=== PATIENT | female | born 1950 | race African-American/Black ===

== ENCOUNTER 2017-09-27 09:04 | Inpatient (IN) ==
[2017-09-27] MEDS ORDERED: FUROSEMIDE 100 MG/10 ML VIAL IV STA (10:06)
[2017-09-27] MEDS ORDERED: cefTRIAXone 1,000 MG in SODIUM CHLORIDE 0.9% 100 ML IV STA (10:06)
[2017-09-27] MEDS ORDERED: ONDANSETRON 4 MG/2 ML VIAL IV STA (10:06)
[2017-09-27] MEDS ORDERED: methylPREDNISolone SOD SUC 125 MG/2 ML VIAL IV STA (10:06)
[2017-09-27] MEDS ORDERED: ALBUTEROL 2.5 MG/3 ML NEB RESP TX SCH (10:30)
[2017-09-27 11:00] LABS: ABG Base Excess 8.2 MMOL/L (-2.5-2.5); ABG HCO3 31.6 MMOL/L (20-26); ABG Oxygen Saturation 75.5 % (95-100); ABG PCO2 51.4 MM HG (35-48); ABG PH 7.428 (7.35-7.45); ABG PO2 44.1 MM HG (80-95); ABG TCO2 30.9 MMOL/L (23-27)
[2017-09-27 11:10] LABS: Basophils % 0.4 % (0.0-0.8); Eosinophils % 0.4 % (0.00-10.9); Hematocrit 33.1 VOL% (35.7-47.0); Hemoglobin 10.5 GM/DL (12.0-16.0); Immature Granulocytes % 0.4 %; Immature Granulocytes Absolute 0.02 #; Lymphocytes # 0.9 10*3/uL (1.4-4.0); Lymphocytes % 15.8 % (21.3-54.2); Mean Corpuscular HGB Conc 31.7 GM/DL (32-36); Mean Corpuscular Hemoglobin 29 PG (27-34); Mean Corpuscular Volume 92.2 FL (87-102); Mean Platelet Volume 11.4 FL (9.6-12.0); Monocytes # 0.6 10*3/uL (0.11-0.8); Monocytes % 10.2 % (1.7-12.7); Neutrophils % 72.8 % (38.7-73.9); Platelet Count 214 T/CUMM (130-400); Red Blood Count 3.59 MC/CUMM (3.8-5.5); Red Cell Distribution Width 17.6 % (9.3-17.3); White Blood Count 5.5 T/CUMM (4-12)
[2017-09-27 11:32] LABS: INR 1.1; PT Patient Result 11.6 SECS
[2017-09-27 11:47] LABS: Apearance,Urine CLEAR (Clear); Bacteria,Urine Occasional /HPF (Few); Bilirubin,Urine Negative (Negative); Blood, Urine Small mg/dL (Negative); Glucose,Urine (UA) Negative (Negative); Ketones,Urine Negative (Negative); Mucus,Urine Occasional /LPF (Occasional); Nitrite,Urine Negative (Negative); Protein,Urine 100 MG/DL; RBC,Urine 1 /HPF (0-4); Squamous Epithelial Cell,Urine Occasional /HPF (0-10); Urine Color Yellow (Yellow); Urine Specific Gravity 1.008 (1.001-1.035); Urine Urobilinogen < 2.0 EU/DL (0.2-1.0); WBC,Urine 2 /HPF (0-6)
[2017-09-27 11:50] LABS: Lactic Acid 0.7 MMOL/L (0.4-2.0)
[2017-09-27 11:52] LABS: Alanine Aminotransferase 18 U/L (13-56); Albumin 2.6 G/DL (3.4-5.0); Alkaline Phosphatase 323 U/L (45-117); Aspartate Amino Transferase 33 U/L (0-37); Blood Urea Nitrogen 21 MG/DL (7-18); Calcium 8.4 MG/DL (8.5-10.1); Glucose 93 MG/DL (74-106); Osmolality,Calculated 279.5 MOS/KG (273-304); Potassium 2.9 MMOL/L (3.5-5.1); Sodium 139 MMOL/L (136-145); Total Protein 7.8 G/DL (6.4-8.3)
[2017-09-27 11:53] LABS: Troponin I Only 0.063 NG/ML (0.00-0.045)
[2017-09-27 11:55] LABS: Barbiturates Screen,Urine Negative (Negative); Benzodiazepines Screen,Urine Negative (Negative); Cannabinoid Screen,Urine Negative (Negative); Opiate Screen,Urine Negative (Negative); Phencyclidine Screen,Urine Negative (Negative)
[2017-09-27] MEDS ORDERED: POTASSIUM CHLORIDE 20 MEQ TABLET PO STA (11:55)
[2017-09-27 11:59] LABS: Ammonia 27 UMOL/L (11-32)
[2017-09-27] MEDS ORDERED: ONDANSETRON 4 MG/2 ML VIAL IV PRN (13:28)
[2017-09-27] MEDS ORDERED: ACETAMINOPHEN 325 MG TABLET PO PRN (13:28)
[2017-09-27] MEDS ORDERED: EPOETIN ALFA 2,000 UNIT/1 ML VIAL IV PRN (15:10)
[2017-09-27] MEDS ORDERED: HEPARIN 10,000 UNIT/10 ML VIAL IV PRN (18:19)
[2017-09-28 05:01] LABS: Hematocrit 33.8 VOL% (35.7-47.0); Hemoglobin 10.2 GM/DL (12.0-16.0); Immature Granulocytes % 0.5 %; Immature Granulocytes Absolute 0.03 #; Lymphocytes # 0.6 10*3/uL (1.4-4.0); Lymphocytes % 10.7 % (21.3-54.2); Mean Corpuscular HGB Conc 30.2 GM/DL (32-36); Mean Corpuscular Hemoglobin 29 PG (27-34); Mean Corpuscular Volume 94.9 FL (87-102); Mean Platelet Volume 11.2 FL (9.6-12.0); Monocytes # 0.6 10*3/uL (0.11-0.8); Monocytes % 10.2 % (1.7-12.7); Neutrophils # 4.5 10*3/uL (1.4-7.4); Neutrophils % 78.6 % (38.7-73.9); Platelet Count 222 T/CUMM (130-400); Red Blood Count 3.56 MC/CUMM (3.8-5.5); Red Cell Distribution Width 17.7 % (9.3-17.3); White Blood Count 5.8 T/CUMM (4-12)
[2017-09-28 05:31] LABS: Albumin 2.5 G/DL (3.4-5.0); Bilirubin,Total 0.6 MG/DL (0.2-1.0); Calcium 8.1 MG/DL (8.5-10.1); Osmolality,Calculated 285.3 MOS/KG (273-304); Potassium 3.9 MMOL/L (3.5-5.1); Total Protein 7.4 G/DL (6.4-8.3)
[2017-09-28] MEDS ORDERED: HEPARIN 10,000 UNIT/10 ML VIAL IV SCH (07:00)
[2017-09-28] MEDS ORDERED: hydrALAZINE 20 MG/1 ML VIAL IV PRN (08:13)
[2017-09-28] MEDS: PANTOPRAZOLE 40 MG TABLET PO SCH (09:08)
[2017-09-28] MEDS: CARVEDILOL 6.25 MG TABLET PO SCH (19:17)
[2017-09-29] MEDS: CARVEDILOL 6.25 MG TABLET PO SCH ×2 (08:52→17:00)
[2017-09-29] MEDS: PANTOPRAZOLE 40 MG TABLET PO SCH (09:13)
[2017-09-29] MEDS: ANASTROZOLE 1 MG TABLET PO SCH (09:13)
[2017-09-29] MEDS: amLODIPine 5 MG TABLET PO SCH (09:13)
[2017-09-29] MEDS: CINACALCET 30 MG TABLET PO SCH (09:16)
[2017-09-29] MEDS ORDERED: LOSARTAN 50 MG TABLET PO SCH (12:00)
[2017-09-29] MEDS ORDERED: ONDANSETRON 4 MG/2 ML VIAL IV ONE (13:00)
[2017-09-30 07:05] LABS: Basophils % 0.4 % (0.0-0.8); Eosinophils # 0.1 10*3/uL (0.0-0.87); Eosinophils % 1.7 % (0.00-10.9); Hematocrit 36.2 VOL% (35.7-47.0); Hemoglobin 10.9 GM/DL (12.0-16.0); Immature Granulocytes Absolute 0.07 #; Lymphocytes # 1.7 10*3/uL (1.4-4.0); Mean Corpuscular HGB Conc 30.1 GM/DL (32-36); Mean Corpuscular Hemoglobin 29 PG (27-34); Mean Corpuscular Volume 95.8 FL (87-102); Mean Platelet Volume 11.2 FL (9.6-12.0); Monocytes # 0.7 10*3/uL (0.11-0.8); Monocytes % 9.6 % (1.7-12.7); NRBC # 0.03 10*3/uL; Neutrophils # 4.3 10*3/uL (1.4-7.4); Neutrophils % 62.3 % (38.7-73.9); Platelet Count 198 T/CUMM (130-400); Red Blood Count 3.78 MC/CUMM (3.8-5.5); Red Cell Distribution Width 18.2 % (9.3-17.3); White Blood Count 6.9 T/CUMM (4-12)
[2017-09-30 07:33] LABS: Calcium 8.1 MG/DL (8.5-10.1); Osmolality,Calculated 284.5 MOS/KG (273-304); Potassium 4.4 MMOL/L (3.5-5.1)
[2017-09-30] MEDS: CINACALCET 30 MG TABLET PO SCH (10:06)
[2017-09-30] MEDS: ANASTROZOLE 1 MG TABLET PO SCH (10:06)
[2017-09-30] MEDS: CARVEDILOL 6.25 MG TABLET PO SCH ×2 (10:06→16:37)
[2017-09-30] MEDS: VALSARTAN 160 MG TABLET PO SCH (10:06)
[2017-09-30] MEDS: amLODIPine 5 MG TABLET PO SCH (10:06)
[2017-09-30] MEDS: PANTOPRAZOLE 40 MG TABLET PO SCH (10:06)
[2017-10-01 06:24] LABS: Basophils % 0.5 % (0.0-0.8); Eosinophils # 0.2 10*3/uL (0.0-0.87); Eosinophils % 2.3 % (0.00-10.9); Hematocrit 34.6 VOL% (35.7-47.0); Hemoglobin 10.6 GM/DL (12.0-16.0); Immature Granulocytes % 1.3 %; Immature Granulocytes Absolute 0.08 #; Lymphocytes # 1.3 10*3/uL (1.4-4.0); Lymphocytes % 20.6 % (21.3-54.2); Mean Corpuscular HGB Conc 30.6 GM/DL (32-36); Mean Corpuscular Hemoglobin 29 PG (27-34); Mean Corpuscular Volume 94.8 FL (87-102); Mean Platelet Volume 11.1 FL (9.6-12.0); Monocytes # 0.7 10*3/uL (0.11-0.8); Monocytes % 10.2 % (1.7-12.7); NRBC # 0.04 10*3/uL; Neutrophils # 4.2 10*3/uL (1.4-7.4); Neutrophils % 65.1 % (38.7-73.9); Platelet Count 182 T/CUMM (130-400); Red Blood Count 3.65 MC/CUMM (3.8-5.5); Red Cell Distribution Width 18.5 % (9.3-17.3); White Blood Count 6.4 T/CUMM (4-12)
[2017-10-01 06:42] LABS: Calcium 7.7 MG/DL (8.5-10.1); Osmolality,Calculated 283.4 MOS/KG (273-304); Potassium 5.1 MMOL/L (3.5-5.1)
[2017-10-01] MEDS: ANASTROZOLE 1 MG TABLET PO SCH (10:36)
[2017-10-01] MEDS: PANTOPRAZOLE 40 MG TABLET PO SCH (10:36)
[2017-10-01] MEDS: VALSARTAN 160 MG TABLET PO SCH (10:36)
[2017-10-01] MEDS: amLODIPine 5 MG TABLET PO SCH (10:37)
[2017-10-01] MEDS: CARVEDILOL 6.25 MG TABLET PO SCH (10:37)
[2017-10-01] MEDS: CINACALCET 30 MG TABLET PO SCH (10:37)
[2017-10-01] MEDS: ISOSORBIDE MONONITRATE 30 MG TABLET PO SCH (16:36)
[2017-10-01] MEDS: hydrALAZINE 25 MG TABLET PO SCH ×2 (16:36→22:38)
[2017-10-01] MEDS: CARVEDILOL 12.5 MG TABLET PO SCH (16:41)
[2017-10-02] MEDS: ISOSORBIDE MONONITRATE 30 MG TABLET PO SCH (09:58)
[2017-10-02] MEDS: CINACALCET 30 MG TABLET PO SCH (09:58)
[2017-10-02] MEDS: CARVEDILOL 12.5 MG TABLET PO SCH ×2 (09:58→16:42)
[2017-10-02] MEDS: PANTOPRAZOLE 40 MG TABLET PO SCH (09:58)
[2017-10-02] MEDS: VALSARTAN 160 MG TABLET PO SCH (09:59)
[2017-10-02] MEDS: hydrALAZINE 25 MG TABLET PO SCH ×3 (09:59→21:11)
[2017-10-02] MEDS: ANASTROZOLE 1 MG TABLET PO SCH (09:59)
[2017-10-03] MEDS: CINACALCET 30 MG TABLET PO SCH (10:03)
[2017-10-03] MEDS: ISOSORBIDE MONONITRATE 30 MG TABLET PO SCH (10:03)
[2017-10-03] MEDS: ANASTROZOLE 1 MG TABLET PO SCH (10:03)
[2017-10-03] MEDS: hydrALAZINE 25 MG TABLET PO SCH (10:04)
[2017-10-03] MEDS: VALSARTAN 160 MG TABLET PO SCH (10:04)
[2017-10-03] MEDS: PANTOPRAZOLE 40 MG TABLET PO SCH (10:04)
[2017-10-03] MEDS: CARVEDILOL 12.5 MG TABLET PO SCH (10:04)
[2017-10-03 12:08] VITALS: BP 150/93
== END 2017-10-03 13:30 | disposition home or self-care (01) | DRG 291 ==
LOC: EDBD → EDUNIT# → N.ED 09:04 → N.EDINP 13:08 → SUATTDRO 13:08 → N.EDINP 14:26 → N.2E 14:44
PROVIDERS: ADMIT Internal Medicine; ATTEND Internal Medicine

== ENCOUNTER 2017-11-24 06:27 | Inpatient (IN) ==
[2017-11-22 17:04] LABS: Osmolality,Calculated 283.5 MOS/KG (273-304); Potassium 3.2 MMOL/L (3.5-5.1)
[2017-11-24] MEDS ORDERED: SODIUM CHLORIDE 0.9% 250 ML IV SCH (06:30)
[2017-11-24] MEDS ORDERED: ceFAZolin 1,000 MG in SYRINGE 1 EACH IV ONE (06:30)
[2017-11-24 07:54] LABS: Basophils % 0.8 % (0.0-0.8); Eosinophils # 0.1 10*3/uL (0.0-0.87); Eosinophils % 1.6 % (0.00-10.9); Hematocrit 37.7 VOL% (35.7-47.0); Immature Granulocytes % 0.3 %; Immature Granulocytes Absolute 0.01 #; Lymphocytes # 1.1 10*3/uL (1.4-4.0); Lymphocytes % 29.8 % (21.3-54.2); Mean Corpuscular HGB Conc 31.8 GM/DL (32-36); Mean Corpuscular Hemoglobin 27 PG (27-34); Mean Corpuscular Volume 84.9 FL (87-102); Monocytes # 0.6 10*3/uL (0.11-0.8); Monocytes % 16.1 % (1.7-12.7); Neutrophils # 1.9 10*3/uL (1.4-7.4); Neutrophils % 51.4 % (38.7-73.9); Red Blood Count 4.44 MC/CUMM (3.8-5.5); Red Cell Distribution Width 19.1 % (9.3-17.3); White Blood Count 3.7 T/CUMM (4-12)
[2017-11-24 08:05] LABS: Platelet Count 80 T/CUMM (130-400)
[2017-11-24 08:07] LABS: Eosinophils 1 % (0-10); Lymphocytes 36 % (20-55); Segmented Neutrophils 58 % (50-85); Total Cells Counted 100
[2017-11-24 08:08] LABS: Hypochromasia 2+; Microcytosis 1+; Ovalocytes Few; Platelet Estimate Decreased
[2017-11-24] MEDS ORDERED: ceFAZolin 1,000 MG VIAL ONE (08:26)
[2017-11-24] MEDS ORDERED: ISOSULFAN BLUE 5 ML VIAL SUBCUT ONE (08:34)
[2017-11-24] MEDS ORDERED: PROPOFOL 200 MG/20 ML VIAL IV ONE (10:30)
[2017-11-24] MEDS ORDERED: fentaNYL 100 MCG/2 ML VIAL ONE (10:30)
[2017-11-24] MEDS ORDERED: LABETALOL 20 MG/4 ML SYRINGE IV ONE (10:30)
[2017-11-24] MEDS ORDERED: SEVOFLURANE 1 UNIT/15 MINUTE INH ONE (10:30)
[2017-11-24] MEDS ORDERED: ETOMIDATE 40 MG/20 ML VIAL IV ONE (10:31)
[2017-11-24] MEDS ORDERED: GLYCOPYRROLATE 0.4 MG/2 ML VIAL ONE (10:31)
[2017-11-24] MEDS ORDERED: NEOSTIGMINE 10 MG/10 ML VIAL ONE (10:31)
[2017-11-24] MEDS ORDERED: ROCURONIUM 100 MG/10 ML VIAL IV ONE (10:31)
[2017-11-24] MEDS ORDERED: ONDANSETRON 4 MG/2 ML VIAL ONE ×2 (10:31→10:57)
[2017-11-24] MEDS ORDERED: hydrALAZINE 20 MG/1 ML VIAL ONE (10:31)
[2017-11-24] MEDS ORDERED: HYDROmorphone 2 MG/1 ML VIAL ONE (10:57)
[2017-11-24] MEDS ORDERED: HYDROmorphone 2 MG/1 ML VIAL IV PRN ×2 (11:01→11:46)
[2017-11-24] MEDS ORDERED: ONDANSETRON 4 MG/2 ML VIAL IV PRN ×2 (11:01→11:46)
[2017-11-24] MEDS ORDERED: GLUCAGON 1 MG VIAL IM PRN (11:46)
[2017-11-24] MEDS ORDERED: DEXTROSE 50% 25 GM/50 ML VIAL IV PRN (11:46)
[2017-11-24] MEDS: INSULIN REGULAR 100 UNIT/ML SUBCUT SCH ×3 (11:46→21:44)
[2017-11-24 11:55] LABS: HIV Antigen/Antibody Result Nonreactive (Nonreactive); Hepatitis B Surface Ag Quant < 0.10 Index; Hepatitis B Surface Ag Result Negative (Negative); Hepatitis C Virus Ab Quant 0.14 Index; Hepatitis C Virus Ab Result Negative (Negative)
[2017-11-24] MEDS ORDERED: PROMETHAZINE 25 MG/1 ML VIAL IM PRN (12:30)
[2017-11-24] MEDS: POTASSIUM CHLORIDE 20 MEQ TABLET PO PRN ×4 (13:23→21:39)
[2017-11-24] MEDS: hydrALAZINE 25 MG TABLET PO SCH ×2 (15:13→21:39)
[2017-11-24] MEDS: CARVEDILOL 12.5 MG TABLET PO SCH (17:24)
[2017-11-25 02:18] LABS: Basophils % 0.5 % (0.0-0.8); Eosinophils # 0.1 10*3/uL (0.0-0.87); Eosinophils % 1.1 % (0.00-10.9); Hematocrit 34.6 VOL% (35.7-47.0); Hemoglobin 10.8 GM/DL (12.0-16.0); Immature Granulocytes % 0.2 %; Immature Granulocytes Absolute 0.01 #; Lymphocytes # 1.2 10*3/uL (1.4-4.0); Lymphocytes % 19.6 % (21.3-54.2); Mean Corpuscular HGB Conc 31.2 GM/DL (32-36); Mean Corpuscular Hemoglobin 27 PG (27-34); Mean Corpuscular Volume 86.9 FL (87-102); Mean Platelet Volume 10.8 FL (9.6-12.0); Monocytes # 0.7 10*3/uL (0.11-0.8); Monocytes % 11.3 % (1.7-12.7); Neutrophils # 4.2 10*3/uL (1.4-7.4); Neutrophils % 67.3 % (38.7-73.9); Platelet Count 91 T/CUMM (130-400); Red Blood Count 3.98 MC/CUMM (3.8-5.5); Red Cell Distribution Width 18.8 % (9.3-17.3); White Blood Count 6.2 T/CUMM (4-12)
[2017-11-25 02:29] LABS: Calcium 7.7 MG/DL (8.5-10.1); Osmolality,Calculated 284.5 MOS/KG (273-304); Potassium 4.9 MMOL/L (3.5-5.1)
[2017-11-25] MEDS: INSULIN REGULAR 100 UNIT/ML SUBCUT SCH ×4 (07:38→21:51)
[2017-11-25] MEDS: CINACALCET 30 MG TABLET PO SCH (08:06)
[2017-11-25] MEDS: ANASTROZOLE 1 MG TABLET PO SCH (08:06)
[2017-11-25] MEDS: ISOSORBIDE MONONITRATE 30 MG TABLET PO SCH (08:31)
[2017-11-25] MEDS: amLODIPine 5 MG TABLET PO SCH (08:31)
[2017-11-25] MEDS: CARVEDILOL 12.5 MG TABLET PO SCH ×2 (08:31→17:24)
[2017-11-25] MEDS: VALSARTAN 160 MG TABLET PO SCH (08:31)
[2017-11-25] MEDS: hydrALAZINE 25 MG TABLET PO SCH ×3 (08:31→21:48)
[2017-11-26 06:56] LABS: Basophils % 0.2 % (0.0-0.8); Eosinophils # 0.1 10*3/uL (0.0-0.87); Eosinophils % 1.5 % (0.00-10.9); Hemoglobin 9.7 GM/DL (12.0-16.0); Immature Granulocytes % 0.4 %; Immature Granulocytes Absolute 0.02 #; Lymphocytes # 1.2 10*3/uL (1.4-4.0); Lymphocytes % 27.3 % (21.3-54.2); Mean Corpuscular HGB Conc 31.3 GM/DL (32-36); Mean Corpuscular Hemoglobin 27 PG (27-34); Mean Corpuscular Volume 87.1 FL (87-102); Monocytes # 0.6 10*3/uL (0.11-0.8); Monocytes % 13.6 % (1.7-12.7); Neutrophils # 2.6 10*3/uL (1.4-7.4); Red Blood Count 3.56 MC/CUMM (3.8-5.5); Red Cell Distribution Width 18.4 % (9.3-17.3); White Blood Count 4.6 T/CUMM (4-12)
[2017-11-26 07:06] LABS: Platelet Count 66 T/CUMM (130-400)
[2017-11-26 07:25] LABS: Calcium 7.4 MG/DL (8.5-10.1); Potassium 4.4 MMOL/L (3.5-5.1)
[2017-11-26 07:30] LABS: Platelet Estimate Decreased
[2017-11-26] MEDS: hydrALAZINE 25 MG TABLET PO SCH ×3 (10:05→22:00)
[2017-11-26] MEDS: CINACALCET 30 MG TABLET PO SCH (10:05)
[2017-11-26] MEDS: ISOSORBIDE MONONITRATE 30 MG TABLET PO SCH (10:06)
[2017-11-26] MEDS: VALSARTAN 160 MG TABLET PO SCH (10:06)
[2017-11-26] MEDS: INSULIN REGULAR 100 UNIT/ML SUBCUT SCH ×4 (10:06→21:48)
[2017-11-26] MEDS: amLODIPine 5 MG TABLET PO SCH (10:06)
[2017-11-26] MEDS: CARVEDILOL 12.5 MG TABLET PO SCH ×2 (10:06→16:31)
[2017-11-26] MEDS: ANASTROZOLE 1 MG TABLET PO SCH (10:09)
[2017-11-26 12:10] LABS: Hematocrit 30.3 VOL% (35.7-47.0); Hemoglobin 9.5 GM/DL (12.0-16.0)
[2017-11-27 06:39] LABS: Basophils % 0.3 % (0.0-0.8); Eosinophils # 0.2 10*3/uL (0.0-0.87); Eosinophils % 4.3 % (0.00-10.9); Hematocrit 29.6 VOL% (35.7-47.0); Hemoglobin 9.4 GM/DL (12.0-16.0); Immature Granulocytes % 0.3 %; Immature Granulocytes Absolute 0.01 #; Lymphocytes # 0.8 10*3/uL (1.4-4.0); Lymphocytes % 19.1 % (21.3-54.2); Mean Corpuscular HGB Conc 31.8 GM/DL (32-36); Mean Corpuscular Hemoglobin 27 PG (27-34); Mean Corpuscular Volume 85.5 FL (87-102); Mean Platelet Volume 10.7 FL (9.6-12.0); Monocytes # 0.5 10*3/uL (0.11-0.8); Monocytes % 13.4 % (1.7-12.7); Neutrophils # 2.5 10*3/uL (1.4-7.4); Neutrophils % 62.6 % (38.7-73.9); Platelet Count 74 T/CUMM (130-400); Red Blood Count 3.46 MC/CUMM (3.8-5.5); Red Cell Distribution Width 18.3 % (9.3-17.3)
[2017-11-27 07:12] LABS: Eosinophils 5 % (0-10); Hypochromasia 1+; Lymphocytes 18 % (20-55); Ovalocytes Slight; Platelet Estimate Decreased; Segmented Neutrophils 72 % (50-85); Total Cells Counted 100
[2017-11-27] MEDS: INSULIN REGULAR 100 UNIT/ML SUBCUT SCH ×3 (09:15→18:11)
[2017-11-27] MEDS: hydrALAZINE 25 MG TABLET PO SCH ×2 (09:15→18:11)
[2017-11-27] MEDS: VALSARTAN 160 MG TABLET PO SCH (09:15)
[2017-11-27] MEDS: ANASTROZOLE 1 MG TABLET PO SCH (09:15)
[2017-11-27] MEDS: CARVEDILOL 12.5 MG TABLET PO SCH ×2 (09:15→18:12)
[2017-11-27] MEDS: amLODIPine 5 MG TABLET PO SCH (09:15)
[2017-11-27] MEDS: ISOSORBIDE MONONITRATE 30 MG TABLET PO SCH (09:15)
[2017-11-27] MEDS: CINACALCET 30 MG TABLET PO SCH (09:26)
[2017-11-27 18:19] VITALS: BP 141/73
== END 2017-11-27 18:42 | disposition home or self-care (01) | DRG 579 ==
LOC: N.OR 06:27 → N.SDSINP 06:29 → N.3E 09:42 → EDSTATUS 10:45 → N.3E 11-25 15:19
PROVIDERS: ADMIT Surgery; ATTEND Surgery

== ENCOUNTER 2018-02-02 13:56 | Inpatient (IN) ==
[2018-02-02] MEDS ORDERED: ALBUTEROL/IPRATROPIUM 3 ML NEB RESP TX STA (17:46)
[2018-02-02] MEDS ORDERED: ONDANSETRON 4 MG/2 ML VIAL IV STA (17:46)
[2018-02-02] MEDS ORDERED: PANTOPRAZOLE 40 MG VIAL IV STA (17:46)
[2018-02-02] MEDS ORDERED: ALUM/MAG/SIMETH/LIDO VISC 1:1 30 ML BOTTLE PO STA (17:46)
[2018-02-02] MEDS ORDERED: PANTOPRAZOLE 40 MG VIAL IV ONE (18:29)
[2018-02-02] MEDS ORDERED: ONDANSETRON 4 MG/2 ML VIAL ONE (18:29)
[2018-02-02] MEDS ORDERED: ALUM/MAG/SIMETH/LIDO VISC 1:1 30 ML BOTTLE PO ONE (18:29)
[2018-02-02 18:36] LABS: Basophils % 0.5 % (0.0-0.8); Eosinophils # 0.1 10*3/uL (0.0-0.87); Eosinophils % 1.2 % (0.00-10.9); Hematocrit 40.2 VOL% (35.7-47.0); Hemoglobin 12.8 GM/DL (12.0-16.0); Immature Granulocytes % 0.2 %; Immature Granulocytes Absolute 0.01 #; Lymphocytes # 1.4 10*3/uL (1.4-4.0); Lymphocytes % 32.3 % (21.3-54.2); Mean Corpuscular HGB Conc 31.8 GM/DL (32-36); Mean Corpuscular Hemoglobin 26 PG (27-34); Mean Corpuscular Volume 82.7 FL (87-102); Monocytes # 0.5 10*3/uL (0.11-0.8); Monocytes % 11.9 % (1.7-12.7); Neutrophils # 2.3 10*3/uL (1.4-7.4); Neutrophils % 53.9 % (38.7-73.9); Platelet Count 105 T/CUMM (130-400); Red Blood Count 4.86 MC/CUMM (3.8-5.5); Red Cell Distribution Width 20.4 % (9.3-17.3); White Blood Count 4.3 T/CUMM (4-12)
[2018-02-02 18:54] LABS: Albumin 2.7 G/DL (3.4-5.0); Bilirubin,Total 1.9 MG/DL (0.2-1.0); Calcium 8.1 MG/DL (8.5-10.1); Osmolality,Calculated 291.1 MOS/KG (273-304); Potassium 3.5 MMOL/L (3.5-5.1)
[2018-02-02 19:00] LABS: Lactic Acid 1.8 MMOL/L (0.4-2.0)
[2018-02-02 19:35] LABS: Platelet Estimate Decreased
[2018-02-02] MEDS ORDERED: hydrALAZINE 25 MG TABLET PO STA (19:56)
[2018-02-02] MEDS ORDERED: ONDANSETRON 4 MG/2 ML VIAL IV PRN (20:55)
[2018-02-03 06:22] LABS: Basophils % 0.7 % (0.0-0.8); Eosinophils % 0.9 % (0.00-10.9); Hematocrit 38.7 VOL% (35.7-47.0); Hemoglobin 12.5 GM/DL (12.0-16.0); Immature Granulocytes % 0.2 %; Immature Granulocytes Absolute 0.01 #; Lymphocytes # 1.1 10*3/uL (1.4-4.0); Mean Corpuscular HGB Conc 32.3 GM/DL (32-36); Mean Corpuscular Hemoglobin 27 PG (27-34); Mean Corpuscular Volume 83.9 FL (87-102); Monocytes # 0.5 10*3/uL (0.11-0.8); Monocytes % 11.3 % (1.7-12.7); Neutrophils # 2.5 10*3/uL (1.4-7.4); Neutrophils % 59.9 % (38.7-73.9); Platelet Count 83 T/CUMM (130-400); Red Blood Count 4.61 MC/CUMM (3.8-5.5); Red Cell Distribution Width 20.6 % (9.3-17.3); White Blood Count 4.2 T/CUMM (4-12)
[2018-02-03 06:44] LABS: Albumin 2.3 G/DL (3.4-5.0); Bilirubin,Total 1.7 MG/DL (0.2-1.0); Osmolality,Calculated 286.5 MOS/KG (273-304); Potassium 3.7 MMOL/L (3.5-5.1); Total Protein 7.2 G/DL (6.4-8.3)
[2018-02-03 06:50] LABS: Acanthocytes Few; Ovalocytes Slight; Target Cells Slight
[2018-02-03 06:51] LABS: Hypochromasia 1+; Microcytosis 1+; Polychromasia Slight
[2018-02-03 06:52] LABS: Platelet Estimate Decreased; Poikilocytosis 1+
[2018-02-03] MEDS: PANTOPRAZOLE 40 MG TABLET PO SCH (10:05)
[2018-02-03] MEDS: VALSARTAN 160 MG TABLET PO SCH (15:30)
[2018-02-03] MEDS: ISOSORBIDE MONONITRATE 30 MG TABLET PO SCH (15:30)
[2018-02-03] MEDS: CINACALCET 30 MG TABLET PO SCH (15:30)
[2018-02-03] MEDS: ANASTROZOLE 1 MG TABLET PO SCH (15:30)
[2018-02-03] MEDS: CALCIUM ACETATE 667 MG CAPSULE PO SCH (18:48)
[2018-02-03] MEDS: hydrALAZINE 25 MG TABLET PO SCH (21:48)
[2018-02-03] MEDS: CARVEDILOL 12.5 MG TABLET PO SCH (22:34)
[2018-02-04] MEDS: PANTOPRAZOLE 40 MG TABLET PO SCH (09:39)
[2018-02-04] MEDS: CARVEDILOL 12.5 MG TABLET PO SCH (09:39)
[2018-02-04] MEDS: VALSARTAN 160 MG TABLET PO SCH (09:39)
[2018-02-04] MEDS: ISOSORBIDE MONONITRATE 30 MG TABLET PO SCH (09:39)
[2018-02-04] MEDS: hydrALAZINE 25 MG TABLET PO SCH (09:39)
[2018-02-04] MEDS: ANASTROZOLE 1 MG TABLET PO SCH (09:39)
[2018-02-04] MEDS: CALCIUM ACETATE 667 MG CAPSULE PO SCH ×2 (09:39→12:50)
[2018-02-04] MEDS: CINACALCET 30 MG TABLET PO SCH (09:39)
[2018-02-04 13:09] VITALS: BP 150/89
== END 2018-02-04 13:42 | disposition home or self-care (01) | DRG 314 ==
LOC: N.ED 13:56 → N.EDINP 20:55 → N.5E 21:57
PROVIDERS: ADMIT Internal Medicine; ATTEND Internal Medicine

== ENCOUNTER 2018-09-30 12:39 | Inpatient (IN) ==
[2018-09-30 13:06] LABS: Basophils % 0.7 % (0.0-0.8); Hematocrit 30.4 VOL% (35.7-47.0); Hemoglobin 9.5 GM/DL (12.0-16.0); Immature Granulocytes % 0.3 %; Immature Granulocytes Absolute 0.01 #; Lymphocytes # 0.6 10*3/uL (1.4-4.0); Lymphocytes % 19.7 % (21.3-54.2); Mean Corpuscular HGB Conc 31.3 GM/DL (32-36); Mean Corpuscular Volume 81.1 FL (87-102); Mean Platelet Volume 10.8 FL (9.6-12.0); Neutrophils % 67.3 % (38.7-73.9); Platelet Count 127 T/CUMM (130-400); Red Blood Count 3.75 MC/CUMM (3.8-5.5); Red Cell Distribution Width 18.3 % (9.3-17.3); White Blood Count 2.9 T/CUMM (4-12)
[2018-09-30 13:21] LABS: INR 1.2; PT Patient Result 13.4 SECS; Partial Thromboplastin Time 94.2 SECS (0-40)
[2018-09-30 13:30] LABS: Alanine Aminotransferase < 6 U/L (13-56); Albumin 1.8 G/DL (3.4-5.0); Alkaline Phosphatase 354 U/L (45-117); Aspartate Amino Transferase 19 U/L (0-37); Blood Urea Nitrogen 30 MG/DL (7-18); Calcium 7.7 MG/DL (8.5-10.1); Glucose 94 MG/DL (74-106); Osmolality,Calculated 280.7 MOS/KG (273-304)
[2018-09-30 13:33] LABS: Troponin I 0.076 NG/ML (0.00-0.045)
[2018-09-30] MEDS ORDERED: NICOTINE 21 MG/24 HR PATCH TRANSDERM PRN (16:41)
[2018-09-30] MEDS ORDERED: ONDANSETRON 4 MG/2 ML VIAL IV PRN (16:41)
[2018-09-30] MEDS ORDERED: LACTULOSE 20 GM/30 ML UDCUP PO ONE (16:45)
[2018-09-30] MEDS ORDERED: cefTRIAXone 1,000 MG in SYRINGE 1 EACH IV SCH (17:00)
[2018-09-30] MEDS ORDERED: DEXTROSE 50% 25 GM/50 ML SYRINGE IV PRN (18:07)
[2018-09-30] MEDS ORDERED: GLUCAGON 1 MG VIAL IM PRN (18:07)
[2018-09-30] MEDS ORDERED: DEXTROSE 50% 25 GM/50 ML SYRINGE IV ONE (18:34)
[2018-09-30] MEDS ORDERED: DEXTROSE 50% 25 GM/50 ML VIAL IV STA (18:40)
[2018-09-30] MEDS: ENOXAPARIN 30 MG/0.3 ML SYRINGE SUBCUT SCH (18:59)
[2018-09-30] MEDS: ALBUTEROL/IPRATROPIUM 3 ML NEB RESP TX SCH (19:40)
[2018-09-30] MEDS ORDERED: CARVEDILOL 3.125 MG TABLET ONE (20:00)
[2018-09-30] MEDS: CARVEDILOL 12.5 MG TABLET PO SCH (20:10)
[2018-09-30] MEDS: DEXTROSE 10% 1,000 ML IV SCH (21:25)
[2018-10-01] MEDS: ALBUTEROL/IPRATROPIUM 3 ML NEB RESP TX SCH ×4 (00:09→19:50)
[2018-10-01 03:48] LABS: Basophils % 0.3 % (0.0-0.8); Eosinophils # 0.1 10*3/uL (0.0-0.87); Eosinophils % 1.9 % (0.00-10.9); Hematocrit 28.5 VOL% (35.7-47.0); Hemoglobin 8.8 GM/DL (12.0-16.0); Immature Granulocytes % 0.3 %; Immature Granulocytes Absolute 0.01 #; Lymphocytes # 0.9 10*3/uL (1.4-4.0); Lymphocytes % 27.8 % (21.3-54.2); Mean Corpuscular HGB Conc 30.9 GM/DL (32-36); Mean Corpuscular Volume 80.7 FL (87-102); Mean Platelet Volume 12.3 FL (9.6-12.0); Monocytes % 11.1 % (1.7-12.7); Neutrophils % 58.6 % (38.7-73.9); Platelet Count 132 T/CUMM (130-400); Red Blood Count 3.53 MC/CUMM (3.8-5.5); Red Cell Distribution Width 18.2 % (9.3-17.3); White Blood Count 3.2 T/CUMM (4-12)
[2018-10-01 04:05] LABS: Alanine Aminotransferase < 6 U/L (13-56); Albumin 1.6 G/DL (3.4-5.0); Alkaline Phosphatase 312 U/L (45-117); Aspartate Amino Transferase 18 U/L (0-37); Blood Urea Nitrogen 31 MG/DL (7-18); Calcium 7.9 MG/DL (8.5-10.1); Glucose 104 MG/DL (74-106); Osmolality,Calculated 281.7 MOS/KG (273-304); Total Protein 6.8 G/DL (6.4-8.3)
[2018-10-01] MEDS: DEXTROSE 10% 1,000 ML IV SCH ×2 (07:24→09:33)
[2018-10-01] MEDS: CARVEDILOL 12.5 MG TABLET PO SCH ×2 (09:30→18:43)
[2018-10-01] MEDS: ISOSORBIDE MONONITRATE 30 MG TABLET PO SCH (09:30)
[2018-10-01] MEDS: CALCIUM ACETATE 667 MG CAPSULE PO SCH ×3 (09:31→18:43)
[2018-10-01] MEDS: VALSARTAN 160 MG TABLET PO SCH (09:31)
[2018-10-01] MEDS: ANASTROZOLE 1 MG TABLET PO SCH (14:05)
[2018-10-01] MEDS ORDERED: LEVOFLOXACIN 250 MG TABLET PO SCH (14:30)
[2018-10-01] MEDS ORDERED: HEPARIN 10,000 UNIT/10 ML VIAL IV PRN (17:07)
[2018-10-01] MEDS: ENOXAPARIN 30 MG/0.3 ML SYRINGE SUBCUT SCH (18:43)
[2018-10-02] MEDS: ALBUTEROL/IPRATROPIUM 3 ML NEB RESP TX SCH ×3 (02:05→14:05)
[2018-10-02 05:24] LABS: Basophils % 0.3 % (0.0-0.8); Eosinophils # 0.1 10*3/uL (0.0-0.87); Eosinophils % 3.7 % (0.00-10.9); Hematocrit 27.7 VOL% (35.7-47.0); Hemoglobin 8.8 GM/DL (12.0-16.0); Immature Granulocytes % 0.3 %; Immature Granulocytes Absolute 0.01 #; Lymphocytes # 0.8 10*3/uL (1.4-4.0); Lymphocytes % 26.8 % (21.3-54.2); Mean Corpuscular HGB Conc 31.8 GM/DL (32-36); Mean Platelet Volume 12.1 FL (9.6-12.0); Neutrophils % 56.9 % (38.7-73.9); Platelet Count 114 T/CUMM (130-400); Red Blood Count 3.42 MC/CUMM (3.8-5.5); Red Cell Distribution Width 18.3 % (9.3-17.3)
[2018-10-02 05:40] LABS: Calcium 7.9 MG/DL (8.5-10.1)
[2018-10-02] MEDS: CARVEDILOL 12.5 MG TABLET PO SCH (08:29)
[2018-10-02] MEDS: VALSARTAN 160 MG TABLET PO SCH (08:29)
[2018-10-02] MEDS: CALCIUM ACETATE 667 MG CAPSULE PO SCH ×2 (08:30→12:23)
[2018-10-02] MEDS: ISOSORBIDE MONONITRATE 30 MG TABLET PO SCH (08:30)
[2018-10-02] MEDS: ANASTROZOLE 1 MG TABLET PO SCH (08:30)
[2018-10-02 12:25] VITALS: BP 129/74
== END 2018-10-02 15:13 | disposition home health service (06) | DRG 640 ==
LOC: EDUNIT# → EDBD → N.ED 12:39 → N.EDINP 12:39 → N.TELEN 19:26
PROVIDERS: ADMIT Internal Medicine; ATTEND Internal Medicine

== ENCOUNTER 2018-12-08 18:13 | Inpatient (IN) ==
[2018-12-08] MEDS ORDERED: PANTOPRAZOLE 40 MG VIAL IV STA (18:54)
[2018-12-08 19:15] LABS: Basophils % 0.3 % (0.0-0.8); Eosinophils # 0.1 10*3/uL (0.0-0.87); Eosinophils % 4.2 % (0.00-10.9); Hematocrit 38.1 VOL% (35.7-47.0); Hemoglobin 11.8 GM/DL (12.0-16.0); Immature Granulocytes % 0.3 %; Immature Granulocytes Absolute 0.01 #; Lymphocytes # 1.2 10*3/uL (1.4-4.0); Mean Corpuscular Volume 81.8 FL (87-102); Monocytes % 13.6 % (1.7-12.7); Neutrophils % 44.6 % (38.7-73.9); Platelet Count 53 T/CUMM (130-400); Red Blood Count 4.66 MC/CUMM (3.8-5.5); White Blood Count 3.3 T/CUMM (4-12)
[2018-12-08 19:40] LABS: Albumin 2.3 G/DL (3.4-5.0); Bilirubin,Total 1.3 MG/DL (0.2-1.0); Calcium 8.8 MG/DL (8.5-10.1); Osmolality,Calculated 270.1 MOS/KG (273-304); Total Protein 9.4 G/DL (6.4-8.3)
[2018-12-08 19:42] LABS: INR 1.1; PT Patient Result 11.9 SECS; Partial Thromboplastin Time 30.5 SECS (0-40)
[2018-12-08 19:59] LABS: Anisocytosis 2+; Hypochromasia 2+; Microcytosis 1+; Ovalocytes 1+; Poikilocytosis 1+; Schistocytes 1+; Target Cells 1+
[2018-12-08 20:00] LABS: Platelet Estimate Decreased; Polychromasia Few
[2018-12-08] MEDS ORDERED: hydrALAZINE 20 MG/1 ML VIAL IV STA (20:05)
[2018-12-08 21:33] LABS: Basophils % 0.5 % (0.0-0.8); Eosinophils # 0.1 10*3/uL (0.0-0.87); Eosinophils % 3.8 % (0.00-10.9); Hematocrit 35.6 VOL% (35.7-47.0); Hemoglobin 11.1 GM/DL (12.0-16.0); Immature Granulocytes % 0.3 %; Immature Granulocytes Absolute 0.01 #; Lymphocytes # 1.1 10*3/uL (1.4-4.0); Mean Corpuscular HGB Conc 31.2 GM/DL (32-36); Mean Corpuscular Volume 81.5 FL (87-102); Monocytes % 17.2 % (1.7-12.7); NRBC # 0.02 10*3/uL; Neutrophils % 48.2 % (38.7-73.9); Red Blood Count 4.37 MC/CUMM (3.8-5.5); Red Cell Distribution Width 18.9 % (9.3-17.3); White Blood Count 3.7 T/CUMM (4-12)
[2018-12-08 21:37] LABS: Platelet Count 65 T/CUMM (130-400)
[2018-12-08 21:57] LABS: Eosinophils 5 % (0-10); Lymphocytes 35 % (20-55); Nucleated Red Blood Cells 1 (0-5); Segmented Neutrophils 50 % (50-85); Total Cells Counted 100
[2018-12-08 21:58] LABS: Anisocytosis 2+; Microcytosis 1+; Ovalocytes Few; Polychromasia Slight
[2018-12-08 21:59] LABS: Platelet Estimate Increased
[2018-12-08] MEDS ORDERED: hydrALAZINE 20 MG/1 ML VIAL IV PRN (22:20)
[2018-12-09] MEDS ORDERED: GLUCAGON 1 MG VIAL IM PRN (00:23)
[2018-12-09] MEDS ORDERED: DEXTROSE 50% 25 GM/50 ML VIAL IV PRN (00:23)
[2018-12-09] MEDS ORDERED: ONDANSETRON 4 MG/2 ML VIAL IV PRN (00:23)
[2018-12-09] MEDS: SODIUM CHLORIDE 0.9% 1,000 ML IV SCH ×2 (00:30→08:52)
[2018-12-09] MEDS: PANTOPRAZOLE 40 MG VIAL IV SCH ×3 (00:30→23:09)
[2018-12-09 01:40] LABS: Hematocrit 30.2 VOL% (35.7-47.0); Hemoglobin 9.7 GM/DL (12.0-16.0)
[2018-12-09 06:33] LABS: Basophils % 0.3 % (0.0-0.8); Eosinophils # 0.1 10*3/uL (0.0-0.87); Eosinophils % 3.6 % (0.00-10.9); Hematocrit 32.5 VOL% (35.7-47.0); Hemoglobin 9.9 GM/DL (12.0-16.0); Immature Granulocytes % 0.3 %; Immature Granulocytes Absolute 0.01 #; Lymphocytes # 1.4 10*3/uL (1.4-4.0); Lymphocytes % 41.8 % (21.3-54.2); Mean Corpuscular HGB Conc 30.5 GM/DL (32-36); Mean Corpuscular Volume 82.3 FL (87-102); Monocytes % 19.4 % (1.7-12.7); Neutrophils % 34.6 % (38.7-73.9); Platelet Count 71 T/CUMM (130-400); Red Blood Count 3.95 MC/CUMM (3.8-5.5); Red Cell Distribution Width 18.8 % (9.3-17.3); White Blood Count 3.4 T/CUMM (4-12)
[2018-12-09 06:39] LABS: INR 1.2; PT Patient Result 12.5 SECS; Partial Thromboplastin Time 30.6 SECS (0-40)
[2018-12-09 07:00] LABS: Eosinophils 3 % (0-10); Lymphocytes 37 % (20-55); Segmented Neutrophils 47 % (50-85); Total Cells Counted 100
[2018-12-09 07:01] LABS: Anisocytosis 1+; Hypochromasia 1+; Microcytosis 1+; Target Cells 2+
[2018-12-09 07:02] LABS: Schistocytes Few
[2018-12-09 07:03] LABS: Ovalocytes 1+; Platelet Estimate Decreased; Smudge Cells Few
[2018-12-09 07:06] LABS: Alanine Aminotransferase < 9 U/L (13-56); Albumin 1.8 G/DL (3.4-5.0); Alkaline Phosphatase 365 U/L (45-117); Aspartate Amino Transferase 25 U/L (0-37); Blood Urea Nitrogen 20 MG/DL (7-18); Calcium 8.4 MG/DL (8.5-10.1); Glucose 63 MG/DL (74-106); Osmolality,Calculated 273.8 MOS/KG (273-304); Total Protein 7.7 G/DL (6.4-8.3)
[2018-12-09] MEDS ORDERED: CARVEDILOL 12.5 MG TABLET PO SCH (08:00)
[2018-12-09] MEDS: ANASTROZOLE 1 MG TABLET PO SCH (09:08)
[2018-12-09] MEDS ORDERED: DEXTROSE 5% NACL 0.9% 1,000 ML IV SCH (09:30)
[2018-12-09] MEDS: cefTRIAXone 1,000 MG in SYRINGE 1 EACH IV SCH (09:57)
[2018-12-09] MEDS ORDERED: DEXTROSE 5% 1,000 ML IV SCH (10:00)
[2018-12-09] MEDS ORDERED: FUROSEMIDE 40 MG/4 ML VIAL IV SCH ×2 (12:00)
[2018-12-09] MEDS: CARVEDILOL 3.125 MG TABLET PO SCH ×2 (12:09→17:37)
[2018-12-09] MEDS: ISOSORBIDE MONONITRATE 30 MG TABLET PO SCH (12:09)
[2018-12-09] MEDS: POTASSIUM CHLORIDE 20 MEQ TABLET PO SCH (12:09)
[2018-12-09 13:20] LABS: Hematocrit 31.1 VOL% (35.7-47.0); Hemoglobin 9.4 GM/DL (12.0-16.0)
[2018-12-09] MEDS ORDERED: NICOTINE 21 MG/24 HR PATCH TRANSDERM PRN (14:37)
[2018-12-09 15:02] LABS: Folate 5.3 NG/ML (5.4-24.0)
[2018-12-09] MEDS: ALBUTEROL/IPRATROPIUM 3 ML NEB RESP TX SCH ×2 (15:59→19:20)
[2018-12-09] MEDS: CALCIUM ACETATE 667 MG CAPSULE PO SCH (17:37)
[2018-12-09 18:38] LABS: Hematocrit 34.2 VOL% (35.7-47.0); Hemoglobin 10.7 GM/DL (12.0-16.0)
[2018-12-10] MEDS: ALBUTEROL/IPRATROPIUM 3 ML NEB RESP TX SCH ×4 (01:20→19:02)
[2018-12-10 05:36] LABS: INR 1.2; PT Patient Result 12.7 SECS
[2018-12-10 05:37] LABS: Basophils % 0.5 % (0.0-0.8); Eosinophils # 0.2 10*3/uL (0.0-0.87); Eosinophils % 4.9 % (0.00-10.9); Hematocrit 32.3 VOL% (35.7-47.0); Hemoglobin 9.9 GM/DL (12.0-16.0); Immature Granulocytes % 0.3 %; Immature Granulocytes Absolute 0.01 #; Lymphocytes # 1.2 10*3/uL (1.4-4.0); Lymphocytes % 32.6 % (21.3-54.2); Mean Corpuscular HGB Conc 30.7 GM/DL (32-36); Mean Corpuscular Volume 83.2 FL (87-102); Monocytes % 15.1 % (1.7-12.7); Neutrophils % 46.6 % (38.7-73.9); Platelet Count 68 T/CUMM (130-400); Red Blood Count 3.88 MC/CUMM (3.8-5.5); Red Cell Distribution Width 19.3 % (9.3-17.3); White Blood Count 3.7 T/CUMM (4-12)
[2018-12-10 06:01] LABS: Calcium 8.7 MG/DL (8.5-10.1); Osmolality,Calculated 278.7 MOS/KG (273-304)
[2018-12-10] MEDS ORDERED: HEPARIN 10,000 UNIT/10 ML VIAL IV PRN (11:47)
[2018-12-10] MEDS: CALCIUM ACETATE 667 MG CAPSULE PO SCH ×3 (13:42→16:04)
[2018-12-10] MEDS: CARVEDILOL 3.125 MG TABLET PO SCH ×2 (13:42→16:04)
[2018-12-10] MEDS: ISOSORBIDE MONONITRATE 30 MG TABLET PO SCH (13:43)
[2018-12-10] MEDS: ANASTROZOLE 1 MG TABLET PO SCH (13:43)
[2018-12-10] MEDS: POTASSIUM CHLORIDE 20 MEQ TABLET PO SCH (13:43)
[2018-12-10] MEDS: cefTRIAXone 1,000 MG in SYRINGE 1 EACH IV SCH (13:44)
[2018-12-10] MEDS: PANTOPRAZOLE 40 MG VIAL IV SCH ×2 (13:44→20:55)
[2018-12-10] MEDS ORDERED: EPOETIN ALFA 2,000 UNIT/1 ML VIAL IV PRN (17:25)
[2018-12-11] MEDS: ALBUTEROL/IPRATROPIUM 3 ML NEB RESP TX SCH ×4 (00:42→20:20)
[2018-12-11 06:02] LABS: INR 1.2; PT Patient Result 13.3 SECS
[2018-12-11 06:19] LABS: Basophils % 0.2 % (0.0-0.8); Eosinophils # 0.1 10*3/uL (0.0-0.87); Eosinophils % 3.5 % (0.00-10.9); Hematocrit 34.3 VOL% (35.7-47.0); Hemoglobin 10.3 GM/DL (12.0-16.0); Immature Granulocytes % 0.2 %; Immature Granulocytes Absolute 0.01 #; Lymphocytes # 1.4 10*3/uL (1.4-4.0); Lymphocytes % 34.1 % (21.3-54.2); Mean Corpuscular Volume 84.5 FL (87-102); Monocytes % 16.4 % (1.7-12.7); Neutrophils % 45.6 % (38.7-73.9); Platelet Count 75 T/CUMM (130-400); Red Blood Count 4.06 MC/CUMM (3.8-5.5); Red Cell Distribution Width 19.1 % (9.3-17.3)
[2018-12-11 06:41] LABS: Anisocytosis 1+; Band Neutrophils 1 % (0-10); Eosinophils 5 % (0-10); Hypochromasia 1+; Lymphocytes 41 % (20-55); Segmented Neutrophils 41 % (50-85); Target Cells 1+; Total Cells Counted 100
[2018-12-11 06:42] LABS: Acanthocytes Few; Platelet Estimate Decreased
[2018-12-11 06:52] LABS: Calcium 8.7 MG/DL (8.5-10.1); Osmolality,Calculated 268.1 MOS/KG (273-304)
[2018-12-11] MEDS: PANTOPRAZOLE 40 MG VIAL IV SCH ×2 (08:29→20:38)
[2018-12-11] MEDS: CALCIUM ACETATE 667 MG CAPSULE PO SCH ×3 (08:29→17:14)
[2018-12-11] MEDS: ANASTROZOLE 1 MG TABLET PO SCH (08:29)
[2018-12-11] MEDS: POTASSIUM CHLORIDE 20 MEQ TABLET PO SCH (08:29)
[2018-12-11] MEDS: ISOSORBIDE MONONITRATE 30 MG TABLET PO SCH (08:29)
[2018-12-11] MEDS: CARVEDILOL 3.125 MG TABLET PO SCH ×2 (08:29→17:14)
[2018-12-11] MEDS: cefTRIAXone 1,000 MG in SYRINGE 1 EACH IV SCH (10:04)
[2018-12-12] MEDS: ALBUTEROL/IPRATROPIUM 3 ML NEB RESP TX SCH ×4 (01:15→19:20)
[2018-12-12 05:31] LABS: Basophils % 0.3 % (0.0-0.8); Eosinophils # 0.2 10*3/uL (0.0-0.87); Eosinophils % 4.2 % (0.00-10.9); Hemoglobin 9.9 GM/DL (12.0-16.0); Immature Granulocytes % 0.3 %; Immature Granulocytes Absolute 0.01 #; Lymphocytes # 1.2 10*3/uL (1.4-4.0); Lymphocytes % 31.3 % (21.3-54.2); Monocytes % 12.2 % (1.7-12.7); Neutrophils % 51.7 % (38.7-73.9); Platelet Count 68 T/CUMM (130-400); Red Blood Count 3.93 MC/CUMM (3.8-5.5); Red Cell Distribution Width 18.9 % (9.3-17.3); White Blood Count 3.8 T/CUMM (4-12)
[2018-12-12 05:58] LABS: Band Neutrophils 1 % (0-10); Eosinophils 4 % (0-10); Hypochromasia 1+; Lymphocytes 24 % (20-55); Segmented Neutrophils 60 % (50-85); Target Cells Slight; Total Cells Counted 100
[2018-12-12 05:59] LABS: Microcytosis Slight; Ovalocytes Slight; Platelet Estimate Decreased
[2018-12-12 06:09] LABS: Calcium 9.5 MG/DL (8.5-10.1); Osmolality,Calculated 268.2 MOS/KG (273-304)
[2018-12-12] MEDS ORDERED: SODIUM POLYSTYRENE SULFATE 15 GM/60 ML BOTTLE PO ONE (07:37)
[2018-12-12] MEDS: ISOSORBIDE MONONITRATE 30 MG TABLET PO SCH (10:33)
[2018-12-12] MEDS: ANASTROZOLE 1 MG TABLET PO SCH (10:33)
[2018-12-12] MEDS: CARVEDILOL 3.125 MG TABLET PO SCH ×2 (10:33→17:16)
[2018-12-12] MEDS: CALCIUM ACETATE 667 MG CAPSULE PO SCH ×3 (10:33→17:16)
[2018-12-12] MEDS: POTASSIUM CHLORIDE 20 MEQ TABLET PO SCH (10:34)
[2018-12-12] MEDS: PANTOPRAZOLE 40 MG VIAL IV SCH ×2 (10:35→22:22)
[2018-12-12] MEDS: cefTRIAXone 1,000 MG in SYRINGE 1 EACH IV SCH (10:41)
[2018-12-12] MEDS: amLODIPine 5 MG TABLET PO SCH (12:35)
[2018-12-12] MEDS: ACETAMINOPHEN 325 MG TABLET PO PRN (12:40)
[2018-12-13 05:06] LABS: Basophils % 0.5 % (0.0-0.8); Eosinophils # 0.2 10*3/uL (0.0-0.87); Eosinophils % 4.9 % (0.00-10.9); Hematocrit 32.9 VOL% (35.7-47.0); Hemoglobin 9.8 GM/DL (12.0-16.0); Immature Granulocytes % 0.3 %; Immature Granulocytes Absolute 0.01 #; Lymphocytes % 25.6 % (21.3-54.2); Mean Corpuscular HGB Conc 29.8 GM/DL (32-36); Mean Corpuscular Volume 85.2 FL (87-102); Neutrophils % 54.7 % (38.7-73.9); Platelet Count 63 T/CUMM (130-400); Red Blood Count 3.86 MC/CUMM (3.8-5.5); Red Cell Distribution Width 19.5 % (9.3-17.3); White Blood Count 3.9 T/CUMM (4-12)
[2018-12-13 05:12] LABS: Calcium 9.9 MG/DL (8.5-10.1)
[2018-12-13 05:41] LABS: Hypochromasia 1+; Platelet Estimate Decreased
[2018-12-13 05:42] LABS: Microcytosis Slight
[2018-12-13] MEDS: ACETAMINOPHEN 325 MG TABLET PO PRN ×2 (05:42→14:07)
[2018-12-13] MEDS: ALBUTEROL/IPRATROPIUM 3 ML NEB RESP TX SCH ×3 (07:24→14:40)
[2018-12-13] MEDS: CALCIUM ACETATE 667 MG CAPSULE PO SCH ×2 (08:18→14:07)
[2018-12-13] MEDS: CARVEDILOL 3.125 MG TABLET PO SCH (08:18)
[2018-12-13] MEDS: amLODIPine 5 MG TABLET PO SCH (08:18)
[2018-12-13] MEDS: ISOSORBIDE MONONITRATE 30 MG TABLET PO SCH (08:18)
[2018-12-13] MEDS: PANTOPRAZOLE 40 MG VIAL IV SCH (08:19)
[2018-12-13] MEDS: ANASTROZOLE 1 MG TABLET PO SCH (08:19)
[2018-12-13] MEDS ORDERED: LEVOFLOXACIN 750 MG TABLET PO ONE (12:00)
[2018-12-13] MEDS: cefTRIAXone 1,000 MG in SYRINGE 1 EACH IV SCH (14:08)
[2018-12-13 15:28] VITALS: BP 142/78
[2018-12-13] MEDS ORDERED: PANTOPRAZOLE 40 MG TABLET PO SCH (16:30)
== END 2018-12-13 18:16 | disposition home health service (06) | DRG 202 ==
LOC: EDUNIT# → EDBD → N.ED 18:13 → N.EDINP 22:03 → SUATTDRO 22:03 → N.CC 22:28 → N.5E 12-09 17:27
PROVIDERS: ADMIT Family Medicine; ATTEND Internal Medicine

== ENCOUNTER 2019-04-14 16:31 | Inpatient (IN) ==
[2019-04-14] MEDS: DEXTROSE 5% NACL 0.9% 250 ML IV SCH (17:00)
[2019-04-14] MEDS ORDERED: DEXTROSE 5% NACL 0.9% 1,000 ML IV SCH (17:00)
[2019-04-14 17:18] LABS: Basophils % 0.9 % (0.0-0.8); Eosinophils # 0.2 10*3/uL (0.0-0.87); Eosinophils % 4.6 % (0.00-10.9); Hematocrit 34.5 VOL% (35.7-47.0); Hemoglobin 10.5 GM/DL (12.0-16.0); Immature Granulocytes % 0.6 %; Immature Granulocytes Absolute 0.02 #; Lymphocytes # 1.5 10*3/uL (1.4-4.0); Lymphocytes % 44.4 % (21.3-54.2); Mean Corpuscular HGB Conc 30.4 GM/DL (32-36); Mean Corpuscular Volume 84.6 FL (87-102); Monocytes % 12.5 % (1.7-12.7); Platelet Count 46 T/CUMM (130-400); Red Blood Count 4.08 MC/CUMM (3.8-5.5); Red Cell Distribution Width 18.3 % (9.3-17.3); White Blood Count 3.3 T/CUMM (4-12)
[2019-04-14 17:26] LABS: INR 1.3; PT Patient Result 13.8 SECS (9.6-12.2); Partial Thromboplastin Time 31.3 SECS (20.8-36.0)
[2019-04-14 17:42] LABS: Eosinophils 4 % (0-10); Lymphocytes 50 % (20-55); Platelet Estimate Decreased; Segmented Neutrophils 36 % (50-85); Total Cells Counted 100
[2019-04-14 17:43] LABS: Alanine Aminotransferase < 9 U/L (13-56); Albumin 1.7 G/DL (3.4-5.0); Alkaline Phosphatase 165 U/L (45-117); Aspartate Amino Transferase 49 U/L (0-37); Blood Urea Nitrogen 15 MG/DL (7-18); Calcium 8.2 MG/DL (8.5-10.1); Estimated Glom Filtration Rate 8 ML/MIN; Glucose 64 MG/DL (74-106); Hypochromasia 2+; Microcytosis Slight; Osmolality,Calculated 264.4 MOS/KG (273-304); Total Protein 8.8 G/DL (6.4-8.3)
[2019-04-14 17:45] LABS: Troponin I 0.553 NG/ML (0.00-0.045)
[2019-04-14] MEDS ORDERED: CALCIUM CHLORIDE 1,000 MG/10 ML SYRINGE IV STA (17:53)
[2019-04-14] MEDS ORDERED: ALBUTEROL NEB SOLN 5 MG/ML 20 ML/BOTTLE CONT NEB STA (17:53)
[2019-04-14 19:01] LABS: Apearance,Urine Slightly Hazy (Clear); Bilirubin,Urine Negative (Negative); Blood, Urine Moderate mg/dL (Negative); Glucose,Urine (UA) Negative (Negative); Ketones,Urine Negative (Negative); Mucus,Urine Occasional /LPF (Occasional); Nitrite,Urine Negative (Negative); Protein,Urine 100 MG/DL; RBC,Urine 52 /HPF (0-4); Squamous Epithelial Cell,Urine Occasional /HPF (0-10); Urine Color Amber (Yellow); Urine Specific Gravity 1.012 (1.001-1.035); Urine Urobilinogen < 2.0 EU/DL (0.2-1.0); WBC,Urine 90 /HPF (0-6)
[2019-04-14] MEDS ORDERED: ONDANSETRON 4 MG/2 ML VIAL IV PRN (19:47)
[2019-04-14] MEDS ORDERED: ACETAMINOPHEN 325 MG TABLET PO PRN (19:47)
[2019-04-14] MEDS ORDERED: NICOTINE 21 MG/24 HR PATCH TRANSDERM PRN (19:47)
[2019-04-14] MEDS ORDERED: ZALEPLON 5 MG CAPSULE PO PRN (19:47)
[2019-04-14] MEDS ORDERED: GLUCAGON 1 MG VIAL IM PRN (19:53)
[2019-04-14] MEDS ORDERED: DEXTROSE 50% 25 GM/50 ML VIAL IV PRN (19:53)
[2019-04-14] MEDS ORDERED: EPOETIN ALFA 2,000 UNIT/1 ML VIAL IV PRN (19:53)
[2019-04-14] MEDS ORDERED: ALBUTEROL/IPRATROPIUM 3 ML NEB RESP TX PRN (20:05)
[2019-04-14] MEDS ORDERED: CALCIUM GLUCONATE 1,000 MG in SODIUM CHLORIDE 0.9% 100 ML IV ONE (21:30)
[2019-04-14] MEDS ORDERED: SODIUM BICARB INJ 150 MEQ in STERILE WATER INJ 850 ML IV SCH (21:30)
[2019-04-14] MEDS: SODIUM POLYSTYRENE SULFATE 15 GM/60 ML BOTTLE PO ONE (23:38)
[2019-04-14] MEDS: cefTRIAXone 1,000 MG in SYRINGE 1 EACH IV SCH (23:38)
[2019-04-14] MEDS: DEXTROSE 5% NACL 0.45% 1,000 ML IV SCH (23:45)
[2019-04-15] MEDS: SODIUM POLYSTYRENE SULFATE 15 GM/60 ML BOTTLE PO ONE (00:18)
[2019-04-15 06:16] LABS: Alanine Aminotransferase < 6 U/L (13-56); Albumin 1.2 G/DL (3.4-5.0); Alkaline Phosphatase 142 U/L (45-117); Aspartate Amino Transferase 22 U/L (0-37); Blood Urea Nitrogen 19 MG/DL (7-18); Calcium 9.2 MG/DL (8.5-10.1); Estimated Glom Filtration Rate 7 ML/MIN; Glucose 93 MG/DL (74-106); HDL Cholesterol 23 MG/DL (40-60); Osmolality,Calculated 280.4 MOS/KG (273-304); Risk Ratio 2.83; Triglycerides 59 MG/DL (2-150); VLDL CHOLESTEROL 11.8 MG/DL
[2019-04-15 06:55] LABS: Basophils % 0.6 % (0.0-0.8); Eosinophils # 0.3 10*3/uL (0.0-0.87); Eosinophils % 8.6 % (0.00-10.9); Hematocrit 28.5 VOL% (35.7-47.0); Hemoglobin 8.7 GM/DL (12.0-16.0); Immature Granulocytes % 0.3 %; Immature Granulocytes Absolute 0.01 #; Lymphocytes # 1.1 10*3/uL (1.4-4.0); Mean Corpuscular HGB Conc 30.5 GM/DL (32-36); Mean Corpuscular Volume 83.3 FL (87-102); Monocytes % 10.7 % (1.7-12.7); Neutrophils % 46.8 % (38.7-73.9); Platelet Count 58 T/CUMM (130-400); Red Blood Count 3.42 MC/CUMM (3.8-5.5); Red Cell Distribution Width 18.2 % (9.3-17.3); White Blood Count 3.3 T/CUMM (4-12)
[2019-04-15] MEDS ORDERED: carvediloL 12.5 MG TABLET PO SCH (08:00)
[2019-04-15 08:27] LABS: Anisocytosis 1+; Hypochromasia 1+; Microcytosis 1+; Platelet Estimate Decreased; Polychromasia Slight; Spherocytes Few; Target Cells Few
[2019-04-15] MEDS: DEXTROSE 5% NACL 0.45% 1,000 ML IV SCH (10:39)
[2019-04-15] MEDS: PANTOPRAZOLE 40 MG TABLET PO SCH (10:39)
[2019-04-15] MEDS: ISOSORBIDE MONONITRATE 30 MG TABLET PO SCH (10:39)
[2019-04-15] MEDS: amLODIPine 5 MG TABLET PO SCH (10:39)
[2019-04-15] MEDS: CALCIUM ACETATE 667 MG CAPSULE PO SCH ×3 (10:39→17:15)
[2019-04-15] MEDS ORDERED: HEPARIN 10,000 UNIT/10 ML VIAL IV PRN (16:30)
[2019-04-15] MEDS: ANASTROZOLE 1 MG TABLET PO SCH (17:15)
[2019-04-15] MEDS: ASPIRIN CHEW 81 MG TABLET PO SCH (17:15)
[2019-04-15] MEDS: cefTRIAXone 1,000 MG in SYRINGE 1 EACH IV SCH (21:38)
[2019-04-16] MEDS: DEXTROSE 5% NACL 0.45% 1,000 ML IV SCH (05:23)
[2019-04-16 07:54] LABS: Basophils % 0.3 % (0.0-0.8); Eosinophils # 0.3 10*3/uL (0.0-0.87); Eosinophils % 8.2 % (0.00-10.9); Hematocrit 28.5 VOL% (35.7-47.0); Hemoglobin 8.9 GM/DL (12.0-16.0); Immature Granulocytes % 0.3 %; Immature Granulocytes Absolute 0.01 #; Lymphocytes # 1.6 10*3/uL (1.4-4.0); Lymphocytes % 43.1 % (21.3-54.2); Mean Corpuscular HGB Conc 31.2 GM/DL (32-36); Mean Corpuscular Volume 82.6 FL (87-102); Monocytes % 14.7 % (1.7-12.7); Neutrophils % 33.4 % (38.7-73.9); Platelet Count 55 T/CUMM (130-400); Red Blood Count 3.45 MC/CUMM (3.8-5.5); Red Cell Distribution Width 18.4 % (9.3-17.3); White Blood Count 3.7 T/CUMM (4-12)
[2019-04-16 08:15] LABS: Calcium 8.3 MG/DL (8.5-10.1); Osmolality,Calculated 269.8 MOS/KG (273-304)
[2019-04-16 08:23] LABS: Band Neutrophils 2 % (0-10); Eosinophils 12 % (0-10); Lymphocytes 39 % (20-55); Segmented Neutrophils 39 % (50-85); Total Cells Counted 100
[2019-04-16 08:24] LABS: Anisocytosis Slight; Hypochromasia 1+; Macrocytosis 1+; Platelet Estimate Decreased; Smudge Cells 1+; Target Cells 1+
[2019-04-16 08:25] LABS: Poikilocytosis Slight
[2019-04-16] MEDS ORDERED: MAGNESIUM SULF RIDER 2 GM in PREMIX 1 EACH IV PRN (08:41)
[2019-04-16] MEDS ORDERED: MAGNESIUM SULF RIDER 4 GM in PREMIX 1 EACH IV PRN (08:41)
[2019-04-16] MEDS: CALCIUM ACETATE 667 MG CAPSULE PO SCH ×4 (10:01→17:48)
[2019-04-16] MEDS: ISOSORBIDE MONONITRATE 30 MG TABLET PO SCH (10:01)
[2019-04-16] MEDS: amLODIPine 5 MG TABLET PO SCH (10:01)
[2019-04-16] MEDS: ASPIRIN CHEW 81 MG TABLET PO SCH (10:01)
[2019-04-16] MEDS: PANTOPRAZOLE 40 MG TABLET PO SCH (10:02)
[2019-04-16] MEDS: POTASSIUM CHLORIDE 20 MEQ TABLET PO PRN ×3 (10:13→14:44)
[2019-04-16] MEDS: ALBUTEROL/IPRATROPIUM 3 ML NEB RESP TX SCH ×2 (14:02→19:24)
[2019-04-16] MEDS: ANASTROZOLE 1 MG TABLET PO SCH (15:18)
[2019-04-16 15:23] LABS: Calcium 8.2 MG/DL (8.5-10.1); Osmolality,Calculated 273.7 MOS/KG (273-304)
[2019-04-16] MEDS: cefTRIAXone 1,000 MG in SYRINGE 1 EACH IV SCH (21:23)
[2019-04-17] MEDS: ALBUTEROL/IPRATROPIUM 3 ML NEB RESP TX SCH ×4 (00:51→19:21)
[2019-04-17] MEDS: DEXTROSE 5% NACL 0.45% 1,000 ML IV SCH (04:30)
[2019-04-17 05:14] LABS: Basophils % 0.3 % (0.0-0.8); Eosinophils # 0.5 10*3/uL (0.0-0.87); Eosinophils % 12.9 % (0.00-10.9); Hematocrit 30.3 VOL% (35.7-47.0); Hemoglobin 9.2 GM/DL (12.0-16.0); Immature Granulocytes % 0.3 %; Immature Granulocytes Absolute 0.01 #; Lymphocytes # 1.5 10*3/uL (1.4-4.0); Lymphocytes % 37.5 % (21.3-54.2); Mean Corpuscular HGB Conc 30.4 GM/DL (32-36); Mean Corpuscular Volume 83.7 FL (87-102); Monocytes % 11.6 % (1.7-12.7); Neutrophils % 37.4 % (38.7-73.9); Platelet Count 62 T/CUMM (130-400); Red Blood Count 3.62 MC/CUMM (3.8-5.5); Red Cell Distribution Width 18.6 % (9.3-17.3)
[2019-04-17 05:39] LABS: Calcium 8.5 MG/DL (8.5-10.1); Osmolality,Calculated 276.4 MOS/KG (273-304)
[2019-04-17 05:45] LABS: Atypical Lymphocytes Few; Eosinophils 10 % (0-10); Lymphocytes 40 % (20-55); Segmented Neutrophils 41 % (50-85); Total Cells Counted 100
[2019-04-17 05:46] LABS: Hypochromasia 1+; Microcytosis 1+; Ovalocytes Slight; Target Cells Few
[2019-04-17 05:47] LABS: Platelet Estimate Decreased
[2019-04-17 06:34] LABS: Hepatitis B Core IgM Quant 0.17 Index; Hepatitis B Surface Ag Quant < 0.10 Index; Hepatitis B Surface Ag Result Negative (Negative); Hepatitis C Virus Ab Quant 0.44 Index; Hepatitis C Virus Ab Result Negative (Negative)
[2019-04-17] MEDS: DEXTROSE 5% NACL 0.9% 250 ML IV SCH (08:01)
[2019-04-17] MEDS: CALCIUM ACETATE 667 MG CAPSULE PO SCH ×3 (08:08→16:03)
[2019-04-17] MEDS: amLODIPine 5 MG TABLET PO SCH (08:08)
[2019-04-17] MEDS: PANTOPRAZOLE 40 MG TABLET PO SCH (08:08)
[2019-04-17] MEDS: ISOSORBIDE MONONITRATE 30 MG TABLET PO SCH (08:08)
[2019-04-17] MEDS: ASPIRIN CHEW 81 MG TABLET PO SCH (08:08)
[2019-04-17] MEDS ORDERED: METOPROLOL TARTRATE 25 MG TABLET PO SCH (12:30)
[2019-04-17 15:53] VITALS: BP 132/54
[2019-04-17] MEDS: ANASTROZOLE 1 MG TABLET PO SCH (17:26)
== END 2019-04-17 20:15 | disposition home health service (06) | DRG 70 ==
LOC: N.ED 16:31 → N.EDINP 19:46 → SUATTDRO 19:46 → N.EDINP 22:14 → N.TELES 22:25 → N.2E 04-16 20:48
PROVIDERS: ADMIT Internal Medicine; ATTEND Internal Medicine

== ENCOUNTER 2019-06-18 20:22 | Inpatient (IN) ==
[2019-06-18] MEDS ORDERED: SODIUM CHLORIDE 0.9% 1,000 ML IV STA (21:09)
[2019-06-18 21:40] LABS: Basophils % 0.6 % (0.0-0.8); Eosinophils # 0.2 10*3/uL (0.0-0.87); Hematocrit 32.2 VOL% (35.7-47.0); Hemoglobin 9.8 GM/DL (12.0-16.0); Immature Granulocytes % 0.3 %; Immature Granulocytes Absolute 0.01 #; Lymphocytes # 1.2 10*3/uL (1.4-4.0); Lymphocytes % 38.3 % (21.3-54.2); Mean Corpuscular HGB Conc 30.4 GM/DL (32-36); Mean Corpuscular Volume 81.1 FL (87-102); Neutrophils % 38.8 % (38.7-73.9); Platelet Count 112 T/CUMM (130-400); Red Blood Count 3.97 MC/CUMM (3.8-5.5); Red Cell Distribution Width 20.6 % (9.3-17.3); White Blood Count 3.1 T/CUMM (4-12)
[2019-06-18 21:52] LABS: INR 1.3
[2019-06-18] MEDS ORDERED: DEXTROSE 50% 25 GM/50 ML VIAL IV STA (21:53)
[2019-06-18 21:54] LABS: Alanine Aminotransferase < 6 U/L (13-56); Albumin 1.4 G/DL (3.4-5.0); Alkaline Phosphatase 147 U/L (45-117); Aspartate Amino Transferase 23 U/L (0-37); Blood Urea Nitrogen 19 MG/DL (7-18); Calcium 8.3 MG/DL (8.5-10.1); Estimated Glom Filtration Rate 6 ML/MIN; Glucose 242 MG/DL (74-106); Osmolality,Calculated 277.2 MOS/KG (273-304)
[2019-06-18] MEDS ORDERED: DEXTROSE 10% 250 ML IV ONE (21:54)
[2019-06-18] MEDS: DEXTROSE 10% 1,000 ML IV SCH (22:00)
[2019-06-18 22:03] LABS: Hypochromasia 2+
[2019-06-18 22:04] LABS: Elliptocytes Few; Polychromasia 1+; Target Cells 1+
[2019-06-18 22:05] LABS: Anisocytosis 1+; Platelet Estimate Adequate; Schistocytes Few
[2019-06-18 22:13] LABS: Apearance,Urine Slightly Hazy (Clear); Bacteria,Urine Occasional /HPF (Few); Bilirubin,Urine Negative (Negative); Blood, Urine Small mg/dL (Negative); Glucose,Urine (UA) Negative (Negative); Hyaline Casts,Urine 6 /LPF (0-3); Ketones,Urine Negative (Negative); Nitrite,Urine Negative (Negative); Protein,Urine 30 MG/DL; RBC,Urine 28 /HPF (0-4); Squamous Epithelial Cell,Urine Occasional /HPF (0-10); Urine Color Yellow (Yellow); Urine Specific Gravity 1.009 (1.001-1.035); WBC,Urine 162 /HPF (0-6)
[2019-06-18] MEDS ORDERED: cefTRIAXone 1,000 MG in SODIUM CHLORIDE 0.9% 100 ML IV STA (22:47)
[2019-06-19] MEDS ORDERED: ACETAMINOPHEN 325 MG TABLET PO PRN (00:41)
[2019-06-19] MEDS ORDERED: ALBUTEROL/IPRATROPIUM 3 ML NEB RESP TX PRN (00:41)
[2019-06-19] MEDS ORDERED: GLUCAGON 1 MG VIAL IM PRN (00:41)
[2019-06-19] MEDS ORDERED: ONDANSETRON 4 MG/2 ML VIAL IV PRN (00:41)
[2019-06-19] MEDS ORDERED: ALBUTEROL 2.5 MG/3 ML NEB RESP TX PRN (00:41)
[2019-06-19] MEDS: AZITHROMYCIN INJ 500 MG in SODIUM CHLORIDE 0.9% 250 ML IV SCH (01:38)
[2019-06-19 04:41] LABS: Basophils % 0.3 % (0.0-0.8); Eosinophils # 0.2 10*3/uL (0.0-0.87); Eosinophils % 7.4 % (0.00-10.9); Hematocrit 29.9 VOL% (35.7-47.0); Hemoglobin 9.2 GM/DL (12.0-16.0); Immature Granulocytes % 0.3 %; Immature Granulocytes Absolute 0.01 #; Lymphocytes # 1.2 10*3/uL (1.4-4.0); Lymphocytes % 37.5 % (21.3-54.2); Mean Corpuscular HGB Conc 30.8 GM/DL (32-36); Mean Corpuscular Volume 80.2 FL (87-102); Mean Platelet Volume 10.8 FL (9.6-12.0); Monocytes % 15.1 % (1.7-12.7); Neutrophils % 39.4 % (38.7-73.9); Platelet Count 113 T/CUMM (130-400); Red Blood Count 3.73 MC/CUMM (3.8-5.5); Red Cell Distribution Width 20.4 % (9.3-17.3); White Blood Count 3.1 T/CUMM (4-12)
[2019-06-19 05:09] LABS: Calcium 8.4 MG/DL (8.5-10.1)
[2019-06-19 05:10] LABS: Hypochromasia 2+
[2019-06-19 05:11] LABS: Ovalocytes Slight; Target Cells Few
[2019-06-19 05:12] LABS: Anisocytosis 1+; Microcytosis 1+; Platelet Estimate Adequate
[2019-06-19] MEDS: HEPARIN 5,000 UNIT/1 ML VIAL SUBCUT SCH (16:39)
[2019-06-19] MEDS: DEXTROSE 10% 1,000 ML IV SCH (18:03)
[2019-06-19] MEDS: cefTRIAXone 1,000 MG in SYRINGE 1 EACH IV SCH (22:53)
[2019-06-20] MEDS: AZITHROMYCIN INJ 500 MG in SODIUM CHLORIDE 0.9% 250 ML IV SCH (02:35)
[2019-06-20] MEDS: HEPARIN 5,000 UNIT/1 ML VIAL SUBCUT SCH (04:53)
[2019-06-20 06:37] LABS: Basophils % 0.7 % (0.0-0.8); Eosinophils # 0.3 10*3/uL (0.0-0.87); Eosinophils % 9.2 % (0.00-10.9); Hematocrit 28.2 VOL% (35.7-47.0); Hemoglobin 8.8 GM/DL (12.0-16.0); Immature Granulocytes % 0.3 %; Immature Granulocytes Absolute 0.01 #; Lymphocytes # 1.5 10*3/uL (1.4-4.0); Lymphocytes % 48.5 % (21.3-54.2); Mean Corpuscular HGB Conc 31.2 GM/DL (32-36); Mean Corpuscular Volume 79.7 FL (87-102); Monocytes % 10.8 % (1.7-12.7); Neutrophils % 30.5 % (38.7-73.9); Platelet Count 100 T/CUMM (130-400); Red Blood Count 3.54 MC/CUMM (3.8-5.5); Red Cell Distribution Width 20.4 % (9.3-17.3); White Blood Count 3.1 T/CUMM (4-12)
[2019-06-20 07:04] LABS: Calcium 8.1 MG/DL (8.5-10.1); Osmolality,Calculated 266.4 MOS/KG (273-304)
[2019-06-20 07:07] LABS: Atypical Lymphocytes Few; Eosinophils 8 % (0-10); Lymphocytes 47 % (20-55); Segmented Neutrophils 34 % (50-85); Total Cells Counted 100
[2019-06-20 07:08] LABS: Anisocytosis 1+; Hypochromasia 2+; Microcytosis 1+
[2019-06-20 07:09] LABS: Platelet Estimate Decreased; Target Cells Few
[2019-06-20] MEDS ORDERED: HEPARIN 10,000 UNIT/10 ML VIAL IV PRN (14:43)
[2019-06-20] MEDS: DEXTROSE 10% 1,000 ML IV SCH (15:49)
[2019-06-20] MEDS: cefTRIAXone 1,000 MG in SYRINGE 1 EACH IV SCH (22:03)
[2019-06-21] MEDS: DEXTROSE 10% 1,000 ML IV SCH ×4 (05:15→21:09)
[2019-06-21 05:27] LABS: Basophils % 0.6 % (0.0-0.8); Eosinophils # 0.3 10*3/uL (0.0-0.87); Eosinophils % 8.1 % (0.00-10.9); Hematocrit 28.1 VOL% (35.7-47.0); Hemoglobin 8.7 GM/DL (12.0-16.0); Lymphocytes # 1.6 10*3/uL (1.4-4.0); Lymphocytes % 46.4 % (21.3-54.2); Mean Corpuscular Volume 80.5 FL (87-102); Monocytes % 11.5 % (1.7-12.7); Neutrophils % 33.4 % (38.7-73.9); Red Blood Count 3.49 MC/CUMM (3.8-5.5); Red Cell Distribution Width 20.4 % (9.3-17.3); White Blood Count 3.5 T/CUMM (4-12)
[2019-06-21 05:29] LABS: Platelet Count 40 T/CUMM (130-400)
[2019-06-21 05:52] LABS: Calcium 7.8 MG/DL (8.5-10.1); Osmolality,Calculated 256.9 MOS/KG (273-304)
[2019-06-21 07:30] LABS: Atypical Lymphocytes Few; Band Neutrophils 3 % (0-10); Eosinophils 10 % (0-10); Lymphocytes 43 % (20-55); Platelet Estimate Decreased; Segmented Neutrophils 42 % (50-85); Smudge Cells Few; Total Cells Counted 100
[2019-06-21 07:31] LABS: Anisocytosis 1+; Hypochromasia 1+; Macrocytosis 1+
[2019-06-21] MEDS ORDERED: AZITHROMYCIN 250 MG TABLET PO SCH (09:00)
[2019-06-21] MEDS ORDERED: POTASSIUM CHLORIDE 20 MEQ TABLET PO ONE (12:00)
[2019-06-21] MEDS: MEGESTROL 40 MG TABLET PO SCH (21:08)
[2019-06-22 04:53] LABS: Basophils % 0.3 % (0.0-0.8); Eosinophils # 0.3 10*3/uL (0.0-0.87); Eosinophils % 8.2 % (0.00-10.9); Hematocrit 27.2 VOL% (35.7-47.0); Hemoglobin 8.4 GM/DL (12.0-16.0); Immature Granulocytes % 0.3 %; Immature Granulocytes Absolute 0.01 #; Lymphocytes # 1.5 10*3/uL (1.4-4.0); Lymphocytes % 45.9 % (21.3-54.2); Mean Corpuscular HGB Conc 30.9 GM/DL (32-36); Mean Corpuscular Volume 80.5 FL (87-102); Monocytes % 13.7 % (1.7-12.7); Neutrophils % 31.6 % (38.7-73.9); Platelet Count 61 T/CUMM (130-400); Red Blood Count 3.38 MC/CUMM (3.8-5.5); Red Cell Distribution Width 19.9 % (9.3-17.3); White Blood Count 3.3 T/CUMM (4-12)
[2019-06-22 05:45] LABS: Calcium 7.9 MG/DL (8.5-10.1); Osmolality,Calculated 253.2 MOS/KG (273-304)
[2019-06-22 06:08] LABS: Eosinophils 9 % (0-10); Lymphocytes 49 % (20-55); Segmented Neutrophils 30 % (50-85); Total Cells Counted 100
[2019-06-22 06:09] LABS: Atypical Lymphocytes Few; Hypochromasia 2+; Platelet Estimate Decreased; Reactive Lymphocytes Few
[2019-06-22 06:10] LABS: Target Cells 1+
[2019-06-22] MEDS: MEGESTROL 40 MG TABLET PO SCH ×2 (10:12→21:53)
[2019-06-22] MEDS: DEXTROSE 10% 1,000 ML IV SCH (10:13)
[2019-06-22] MEDS: DEXTROSE 10% 500 ML IV SCH (23:32)
[2019-06-23 04:47] LABS: Basophils % 0.3 % (0.0-0.8); Eosinophils # 0.2 10*3/uL (0.0-0.87); Eosinophils % 4.9 % (0.00-10.9); Hematocrit 26.9 VOL% (35.7-47.0); Hemoglobin 8.4 GM/DL (12.0-16.0); Immature Granulocytes % 0.3 %; Immature Granulocytes Absolute 0.01 #; Lymphocytes # 1.4 10*3/uL (1.4-4.0); Lymphocytes % 38.2 % (21.3-54.2); Mean Corpuscular HGB Conc 31.2 GM/DL (32-36); Mean Corpuscular Volume 80.3 FL (87-102); Monocytes % 12.1 % (1.7-12.7); Neutrophils % 44.2 % (38.7-73.9); Platelet Count 40 T/CUMM (130-400); Red Blood Count 3.35 MC/CUMM (3.8-5.5); Red Cell Distribution Width 19.3 % (9.3-17.3); White Blood Count 3.6 T/CUMM (4-12)
[2019-06-23 05:14] LABS: Atypical Lymphocytes Few; Eosinophils 3 % (0-10); Hypochromasia 2+; Lymphocytes 36 % (20-55); Myelocytes 1 %; Segmented Neutrophils 49 % (50-85); Target Cells Slight; Total Cells Counted 100
[2019-06-23 05:15] LABS: Anisocytosis 1+; Macrocytosis 1+; Ovalocytes Slight; Platelet Estimate Decreased
[2019-06-23 05:29] LABS: Calcium 7.9 MG/DL (8.5-10.1); Osmolality,Calculated 252.2 MOS/KG (273-304)
[2019-06-23] MEDS: DEXTROSE 10% 500 ML IV SCH ×4 (06:14→22:40)
[2019-06-23] MEDS: MEGESTROL 40 MG TABLET PO SCH ×2 (08:46→21:49)
[2019-06-24] MEDS: DEXTROSE 10% 500 ML IV SCH ×2 (05:50→20:15)
[2019-06-24 06:39] LABS: Basophils % 0.3 % (0.0-0.8); Eosinophils # 0.2 10*3/uL (0.0-0.87); Eosinophils % 5.2 % (0.00-10.9); Hematocrit 27.8 VOL% (35.7-47.0); Hemoglobin 8.5 GM/DL (12.0-16.0); Lymphocytes # 1.4 10*3/uL (1.4-4.0); Lymphocytes % 46.3 % (21.3-54.2); Mean Corpuscular HGB Conc 30.6 GM/DL (32-36); Mean Corpuscular Volume 79.9 FL (87-102); Monocytes % 12.9 % (1.7-12.7); Neutrophils % 35.3 % (38.7-73.9); Platelet Count 69 T/CUMM (130-400); Red Blood Count 3.48 MC/CUMM (3.8-5.5); Red Cell Distribution Width 19.2 % (9.3-17.3); White Blood Count 3.1 T/CUMM (4-12)
[2019-06-24 06:56] LABS: Calcium 8.2 MG/DL (8.5-10.1); Osmolality,Calculated 246.8 MOS/KG (273-304)
[2019-06-24 07:16] LABS: Anisocytosis 1+; Band Neutrophils 2 % (0-10); Eosinophils 2 % (0-10); Lymphocytes 44 % (20-55); Platelet Estimate Decreased; Segmented Neutrophils 47 % (50-85); Total Cells Counted 100
[2019-06-24 07:17] LABS: Hypochromasia 1+; Microcytosis 1+; Schistocytes Few; Target Cells Slight
[2019-06-24] MEDS: MEGESTROL 40 MG TABLET PO SCH ×2 (09:44→22:23)
[2019-06-24] MEDS: DEXTROSE 10% 250 ML BAG IV PRN ×2 (13:55→20:15)
[2019-06-25] MEDS: DEXTROSE 10% 500 ML IV SCH ×6 (00:31→21:46)
[2019-06-25] MEDS: MEGESTROL 40 MG TABLET PO SCH ×2 (09:36→21:50)
[2019-06-25] MEDS: predniSONE 10 MG TABLET PO SCH (10:25)
[2019-06-25 13:18] LABS: Folate 6.1 NG/ML (5.4-24.0)
[2019-06-25] MEDS: DEXTROSE 10% 250 ML BAG IV PRN (21:47)
[2019-06-26] MEDS: DEXTROSE 10% 250 ML BAG IV PRN ×2 (04:42→09:37)
[2019-06-26] MEDS: predniSONE 10 MG TABLET PO SCH (09:36)
[2019-06-26] MEDS: FOLIC ACID 1 MG TABLET PO SCH (09:36)
[2019-06-26] MEDS: MEGESTROL 40 MG TABLET PO SCH ×2 (09:36→21:56)
[2019-06-26] MEDS: DEXTROSE 10% 500 ML IV SCH ×2 (18:34)
[2019-06-27] MEDS: MEGESTROL 40 MG TABLET PO SCH ×2 (08:35→22:04)
[2019-06-27] MEDS: predniSONE 10 MG TABLET PO SCH (08:35)
[2019-06-27] MEDS: FOLIC ACID 1 MG TABLET PO SCH (08:35)
[2019-06-27] MEDS: cloNIDine 0.1 MG TABLET PO PRN (11:49)
[2019-06-27] MEDS: DEXTROSE 10% 500 ML IV SCH ×2 (14:24→22:05)
[2019-06-27] MEDS ORDERED: TUBERCULIN SKIN TEST 0.1 ML SYRINGE INTRADERM ONE (16:51)
[2019-06-28 05:49] LABS: Calcium 8.5 MG/DL (8.5-10.1); Osmolality,Calculated 264.5 MOS/KG (273-304)
[2019-06-28] MEDS: predniSONE 10 MG TABLET PO SCH (08:48)
[2019-06-28] MEDS: MEGESTROL 40 MG TABLET PO SCH ×2 (08:48→22:09)
[2019-06-28] MEDS: FOLIC ACID 1 MG TABLET PO SCH (08:49)
[2019-06-28] MEDS: DEXTROSE 10% 250 ML BAG IV PRN ×2 (08:49→08:50)
[2019-06-28] MEDS: DEXTROSE 10% 500 ML IV SCH (08:52)
[2019-06-29 06:05] LABS: Calcium 8.7 MG/DL (8.5-10.1); Osmolality,Calculated 266.5 MOS/KG (273-304)
[2019-06-29] MEDS: MEGESTROL 40 MG TABLET PO SCH ×2 (08:16→21:25)
[2019-06-29] MEDS: FOLIC ACID 1 MG TABLET PO SCH (08:16)
[2019-06-29] MEDS: predniSONE 10 MG TABLET PO SCH (08:16)
[2019-06-30] MEDS: cloNIDine 0.1 MG TABLET PO PRN (01:19)
[2019-06-30 05:37] LABS: Basophils % 0.2 % (0.0-0.8); Eosinophils % 0.6 % (0.00-10.9); Hematocrit 25.3 VOL% (35.7-47.0); Hemoglobin 7.6 GM/DL (12.0-16.0); Immature Granulocytes % 0.4 %; Immature Granulocytes Absolute 0.02 #; Lymphocytes # 1.1 10*3/uL (1.4-4.0); Lymphocytes % 22.6 % (21.3-54.2); Mean Corpuscular Volume 81.4 FL (87-102); Mean Platelet Volume 10.9 FL (9.6-12.0); Monocytes % 11.4 % (1.7-12.7); Neutrophils % 64.8 % (38.7-73.9); Platelet Count 135 T/CUMM (130-400); Red Blood Count 3.11 MC/CUMM (3.8-5.5); Red Cell Distribution Width 19.8 % (9.3-17.3); White Blood Count 4.9 T/CUMM (4-12)
[2019-06-30] MEDS: predniSONE 10 MG TABLET PO SCH (09:18)
[2019-06-30] MEDS: FOLIC ACID 1 MG TABLET PO SCH (09:19)
[2019-06-30] MEDS: MEGESTROL 40 MG TABLET PO SCH (09:19)
[2019-06-30 12:37] VITALS: BP 160/84
== END 2019-06-30 13:45 | DRG 193 ==
LOC: EDUNIT# → EDBD → N.ED 20:22 → SUATTDRO 23:41 → N.EDINP 23:41 → N.ICU 06-19 00:24 → N.5E 06-19 17:13
PROVIDERS: ADMIT Internal Medicine; ATTEND Internal Medicine

== ENCOUNTER 2019-08-18 19:09 | Inpatient (IN) ==
[2019-08-18 20:56] LABS: Basophils % 0.1 % (0.0-0.8); Hematocrit 33.7 VOL% (35.7-47.0); Hemoglobin 10.3 GM/DL (12.0-16.0); Immature Granulocytes % 0.5 %; Immature Granulocytes Absolute 0.04 #; Lymphocytes # 0.6 10*3/uL (1.4-4.0); Lymphocytes % 7.9 % (21.3-54.2); Mean Corpuscular HGB Conc 30.6 GM/DL (32-36); Mean Corpuscular Volume 95.2 FL (87-102); Mean Platelet Volume 10.8 FL (9.6-12.0); Monocytes % 5.4 % (1.7-12.7); NRBC # 0.02 10*3/uL; Neutrophils % 86.1 % (38.7-73.9); Platelet Count 97 T/CUMM (130-400); Red Blood Count 3.54 MC/CUMM (3.8-5.5); Red Cell Distribution Width 22.1 % (9.3-17.3); White Blood Count 8.1 T/CUMM (4-12)
[2019-08-18 21:16] LABS: Albumin 2.4 G/DL (3.4-5.0); Bilirubin,Total 0.7 MG/DL (0.2-1.0); Calcium 8.3 MG/DL (8.5-10.1); Osmolality,Calculated 285.7 MOS/KG (273-304); Total Protein 6.4 G/DL (6.4-8.3)
[2019-08-18] MEDS ORDERED: HYDROXYCHLOROQUINE 200 MG TABLET PO ONE (21:16)
[2019-08-18 21:44] LABS: Ferritin 4000.8 ng/ml (8-252)
[2019-08-19] MEDS ORDERED: ACETAMINOPHEN 325 MG TABLET PO PRN (06:06)
[2019-08-19] MEDS ORDERED: BISACODYL 5 MG TABLET PO PRN (06:09)
[2019-08-19] MEDS ORDERED: ONDANSETRON 4 MG/2 ML VIAL IV PRN (06:09)
[2019-08-19] MEDS ORDERED: AZITHROMYCIN 250 MG TABLET PO ONE (06:15)
[2019-08-19] MEDS ORDERED: VANCOMYCIN INJ 1,000 MG in SODIUM CHLORIDE 0.9% 250 ML IV ONE (06:30)
[2019-08-19] MEDS ORDERED: VANCOMYCIN INJ 500 MG in SODIUM CHLORIDE 0.9% 100 ML IV PRN (06:44)
[2019-08-19] MEDS: predniSONE 10 MG TABLET PO SCH (09:38)
[2019-08-19] MEDS: ENOXAPARIN 30 MG/0.3 ML SYRINGE SUBCUT SCH (09:38)
[2019-08-19] MEDS: CALCIUM ACETATE 667 MG CAPSULE PO SCH ×3 (09:38→16:50)
[2019-08-19] MEDS: carvediloL 12.5 MG TABLET PO SCH ×2 (09:38→16:50)
[2019-08-19] MEDS: PANTOPRAZOLE 40 MG TABLET PO SCH (09:38)
[2019-08-19] MEDS: ISOSORBIDE MONONITRATE 30 MG TABLET PO SCH (09:38)
[2019-08-19] MEDS: amLODIPine 5 MG TABLET PO SCH (09:39)
[2019-08-19] MEDS: ZINC SULFATE 220 MG CAPSULE PO SCH ×3 (12:54→16:51)
[2019-08-19] MEDS: ALBUTEROL INHALER 8 GM INH SCH ×2 (14:15→23:20)
[2019-08-19] MEDS ORDERED: HYDROXYCHLOROQUINE 200 MG TABLET PO ONE ×2 (15:00→21:00)
[2019-08-19] MEDS: PIPERACILLIN/TAZOBACTAM 3,375 MG in SODIUM CHLORIDE 0.9% 100 ML IV SCH ×2 (15:11→21:40)
[2019-08-19] MEDS: ANASTROZOLE 1 MG TABLET PO SCH (16:50)
[2019-08-19] MEDS ORDERED: ETOMIDATE 20 MG/10 ML VIAL IV ONE (18:44)
[2019-08-19] MEDS ORDERED: VECURONIUM 10 MG VIAL IV ONE (18:44)
[2019-08-19 18:51] LABS: ABG Base Excess -4.8 MMOL/L (-2.5-2.5); ABG HCO3 19.4 MMOL/L (20-26); ABG Oxygen Saturation 39.9 % (95-100); ABG PCO2 52.3 MM HG (35-48); ABG PH 7.251 (7.35-7.45); ABG TCO2 21.2 MMOL/L (23-27); Allen Test Positive
[2019-08-19 19:16] LABS: ABG PO2 32.3 MM HG (80-95)
[2019-08-19 19:38] LABS: ABG Base Excess -4.3 MMOL/L (-2.5-2.5); ABG HCO3 20.8 MMOL/L (20-26); ABG Oxygen Saturation 91.8 % (95-100); ABG PCO2 59.4 MM HG (35-48); ABG PH 7.222 (7.35-7.45); ABG TCO2 22.5 MMOL/L (23-27)
[2019-08-19] MEDS: ASPIRIN CHEW 81 MG TABLET PO SCH (22:14)
[2019-08-19] MEDS: FOLIC ACID 1 MG TABLET PO SCH (22:14)
[2019-08-20] MEDS: ALBUTEROL INHALER 8 GM INH SCH ×4 (03:00→18:02)
[2019-08-20 03:57] LABS: Basophils % 0.2 % (0.0-0.8); Hematocrit 35.5 VOL% (35.7-47.0); Hemoglobin 10.8 GM/DL (12.0-16.0); Immature Granulocytes % 0.6 %; Immature Granulocytes Absolute 0.03 #; Lymphocytes # 0.6 10*3/uL (1.4-4.0); Lymphocytes % 10.8 % (21.3-54.2); Mean Corpuscular HGB Conc 30.4 GM/DL (32-36); Mean Corpuscular Volume 94.4 FL (87-102); Monocytes % 7.3 % (1.7-12.7); NRBC # 0.06 10*3/uL; Neutrophils % 81.1 % (38.7-73.9); Platelet Count 102 T/CUMM (130-400); Red Blood Count 3.76 MC/CUMM (3.8-5.5); Red Cell Distribution Width 22.1 % (9.3-17.3); White Blood Count 5.2 T/CUMM (4-12)
[2019-08-20 04:23] LABS: Albumin 2.1 G/DL (3.4-5.0); Bilirubin,Total 0.8 MG/DL (0.2-1.0); Calcium 7.8 MG/DL (8.5-10.1); Total Protein 6.2 G/DL (6.4-8.3)
[2019-08-20 05:01] LABS: Anisocytosis 1+; Ovalocytes 1+; Platelet Estimate Adequate; Target Cells 1+; Tear Drop Cells 1+
[2019-08-20] MEDS: carvediloL 12.5 MG TABLET PO SCH ×2 (09:57→16:01)
[2019-08-20] MEDS: CALCIUM ACETATE 667 MG CAPSULE PO SCH ×3 (09:57→16:01)
[2019-08-20] MEDS: predniSONE 10 MG TABLET PO SCH (09:58)
[2019-08-20] MEDS: HYDROXYCHLOROQUINE 200 MG TABLET PO SCH ×2 (09:58→11:29)
[2019-08-20] MEDS: amLODIPine 5 MG TABLET PO SCH (09:58)
[2019-08-20] MEDS: ISOSORBIDE MONONITRATE 30 MG TABLET PO SCH (09:58)
[2019-08-20] MEDS: ENOXAPARIN 30 MG/0.3 ML SYRINGE SUBCUT SCH (09:58)
[2019-08-20] MEDS: AZITHROMYCIN 250 MG TABLET PO SCH (09:58)
[2019-08-20] MEDS: PANTOPRAZOLE 40 MG TABLET PO SCH (09:58)
[2019-08-20] MEDS: PIPERACILLIN/TAZOBACTAM 3,375 MG in SODIUM CHLORIDE 0.9% 100 ML IV SCH ×2 (10:50→20:34)
[2019-08-20] MEDS: ANASTROZOLE 1 MG TABLET PO SCH (16:00)
[2019-08-20] MEDS: FOLIC ACID 1 MG TABLET PO SCH (21:47)
[2019-08-20] MEDS: ASPIRIN CHEW 81 MG TABLET PO SCH (21:47)
[2019-08-21] MEDS: ALBUTEROL INHALER 8 GM INH SCH ×4 (01:00→20:37)
[2019-08-21] MEDS: methylPREDNISolone SOD SUC 40 MG/1 ML VIAL IV SCH (08:14)
[2019-08-21] MEDS: PIPERACILLIN/TAZOBACTAM 3,375 MG in SODIUM CHLORIDE 0.9% 100 ML IV SCH ×2 (08:14→22:12)
[2019-08-21] MEDS: PANTOPRAZOLE 40 MG TABLET PO SCH (08:15)
[2019-08-21] MEDS: CALCIUM ACETATE 667 MG CAPSULE PO SCH ×3 (08:15→16:13)
[2019-08-21] MEDS: ZINC SULFATE 220 MG CAPSULE PO SCH (08:15)
[2019-08-21] MEDS: ENOXAPARIN 30 MG/0.3 ML SYRINGE SUBCUT SCH (08:15)
[2019-08-21] MEDS: AZITHROMYCIN 250 MG TABLET PO SCH (08:15)
[2019-08-21 08:53] LABS: ABG HCO3 24.1 MMOL/L (20-26); ABG Oxygen Saturation 84.1 % (95-100); ABG PCO2 49.5 MM HG (35-48); ABG PH 7.335 (7.35-7.45); ABG PO2 56.1 MM HG (80-95); ABG TCO2 23.9 MMOL/L (23-27); Allen Test Positive; Pt O2 Delivery Device Ventilator
[2019-08-21 09:56] LABS: Calcium 7.4 MG/DL (8.5-10.1); Osmolality,Calculated 276.4 MOS/KG (273-304)
[2019-08-21] MEDS: PANTOPRAZOLE 40 MG VIAL IV SCH (10:23)
[2019-08-21] MEDS: ANASTROZOLE 1 MG TABLET PO SCH (16:13)
[2019-08-21] MEDS: ASPIRIN CHEW 81 MG TABLET PO SCH (22:12)
[2019-08-21] MEDS: FOLIC ACID 1 MG TABLET PO SCH (22:12)
[2019-08-22] MEDS: ALBUTEROL INHALER 8 GM INH SCH ×4 (03:56→18:16)
[2019-08-22 04:09] LABS: ABG HCO3 24.2 MMOL/L (20-26); ABG PCO2 51.4 MM HG (35-48); ABG PH 7.324 (7.35-7.45); ABG PO2 65.4 MM HG (80-95); ABG TCO2 24.2 MMOL/L (23-27); Allen Test Positive; Pt O2 Delivery Device Ventilator
[2019-08-22 05:38] LABS: Hematocrit 33.7 VOL% (35.7-47.0); Immature Granulocytes % 0.6 %; Immature Granulocytes Absolute 0.03 #; Lymphocytes # 0.6 10*3/uL (1.4-4.0); Lymphocytes % 11.5 % (21.3-54.2); Mean Corpuscular HGB Conc 32.6 GM/DL (32-36); Mean Corpuscular Volume 88.9 FL (87-102); Monocytes % 5.5 % (1.7-12.7); NRBC # 0.04 10*3/uL; Neutrophils % 82.4 % (38.7-73.9); Platelet Count 82 T/CUMM (130-400); Red Blood Count 3.79 MC/CUMM (3.8-5.5); Red Cell Distribution Width 21.5 % (9.3-17.3); White Blood Count 4.9 T/CUMM (4-12)
[2019-08-22 05:58] LABS: Burr Cells Slight; Elliptocytes Few; Hypochromasia 1+; Platelet Estimate Decreased
[2019-08-22 05:59] LABS: Calcium 7.3 MG/DL (8.5-10.1); Osmolality,Calculated 281.1 MOS/KG (273-304)
[2019-08-22] MEDS: methylPREDNISolone SOD SUC 40 MG/1 ML VIAL IV SCH (08:21)
[2019-08-22] MEDS: ENOXAPARIN 30 MG/0.3 ML SYRINGE SUBCUT SCH (08:25)
[2019-08-22] MEDS: CALCIUM ACETATE 667 MG CAPSULE PO SCH ×3 (08:25→16:20)
[2019-08-22] MEDS: AZITHROMYCIN 250 MG TABLET PO SCH (08:25)
[2019-08-22] MEDS: PANTOPRAZOLE 40 MG VIAL IV SCH (08:26)
[2019-08-22] MEDS: PIPERACILLIN/TAZOBACTAM 3,375 MG in SODIUM CHLORIDE 0.9% 100 ML IV SCH (08:26)
[2019-08-22] MEDS: MULTIVITAMIN LIQUID (CENTRUM) 60 ML BOTTLE PO SCH (08:29)
[2019-08-22] MEDS ORDERED: lisinopriL 10 MG TABLET PO PRN (12:19)
[2019-08-22] MEDS ORDERED: VANCOMYCIN INJ 500 MG in SODIUM CHLORIDE 0.9% 100 ML IV ONE (15:00)
[2019-08-22] MEDS: FOLIC ACID 1 MG TABLET PO SCH (23:18)
[2019-08-22] MEDS: ASPIRIN CHEW 81 MG TABLET PO SCH (23:18)
[2019-08-23] MEDS: ALBUTEROL INHALER 8 GM INH SCH ×4 (02:29→19:02)
[2019-08-23 04:19] LABS: ABG Base Excess -0.7 MMOL/L (-2.5-2.5); ABG HCO3 26.3 MMOL/L (20-26); ABG Oxygen Saturation 92.5 % (95-100); ABG PCO2 52.9 MM HG (35-48); ABG PH 7.315 (7.35-7.45); ABG PO2 74.7 MM HG (80-95)
[2019-08-23 06:03] LABS: Basophils % 0.2 % (0.0-0.8); Hematocrit 34.4 VOL% (35.7-47.0); Hemoglobin 11.1 GM/DL (12.0-16.0); Immature Granulocytes % 1.3 %; Immature Granulocytes Absolute 0.07 #; Lymphocytes # 0.5 10*3/uL (1.4-4.0); Lymphocytes % 9.3 % (21.3-54.2); Mean Corpuscular HGB Conc 32.3 GM/DL (32-36); Mean Corpuscular Volume 89.1 FL (87-102); Monocytes % 3.6 % (1.7-12.7); NRBC # 0.07 10*3/uL; Neutrophils % 85.6 % (38.7-73.9); Platelet Count 96 T/CUMM (130-400); Red Blood Count 3.86 MC/CUMM (3.8-5.5); Red Cell Distribution Width 21.6 % (9.3-17.3); White Blood Count 5.6 T/CUMM (4-12)
[2019-08-23 06:17] LABS: Calcium 7.3 MG/DL (8.5-10.1); Osmolality,Calculated 270.5 MOS/KG (273-304)
[2019-08-23 06:26] LABS: Band Neutrophils 1 % (0-10); Eosinophils 1 % (0-10); Hypochromasia 1+; Lymphocytes 6 % (20-55); Segmented Neutrophils 89 % (50-85); Total Cells Counted 100
[2019-08-23 06:27] LABS: Acanthocytes Few; Anisocytosis 1+; Burr Cells Few; Microcytosis 1+
[2019-08-23 06:28] LABS: Platelet Estimate Decreased; Target Cells Slight
[2019-08-23] MEDS: CALCIUM ACETATE 667 MG CAPSULE PO SCH ×3 (09:30→16:40)
[2019-08-23] MEDS: ZINC SULFATE 220 MG CAPSULE PO SCH (09:30)
[2019-08-23] MEDS: PANTOPRAZOLE 40 MG VIAL IV SCH (09:30)
[2019-08-23] MEDS: MULTIVITAMIN LIQUID (CENTRUM) 60 ML BOTTLE PO SCH (09:30)
[2019-08-23] MEDS: ENOXAPARIN 30 MG/0.3 ML SYRINGE SUBCUT SCH (09:30)
[2019-08-23] MEDS: AZITHROMYCIN 250 MG TABLET PO SCH (09:30)
[2019-08-23] MEDS: methylPREDNISolone SOD SUC 40 MG/1 ML VIAL IV SCH (09:32)
[2019-08-23] MEDS: MEROPENEM 500 MG in SODIUM CHLORIDE 0.9% 100 ML IV SCH (09:55)
[2019-08-23] MEDS: ASPIRIN CHEW 81 MG TABLET PO SCH (20:11)
[2019-08-23] MEDS: FOLIC ACID 1 MG TABLET PO SCH (20:12)
[2019-08-24] MEDS: ALBUTEROL INHALER 8 GM INH SCH ×4 (01:05→18:08)
[2019-08-24 04:27] LABS: ABG Base Excess -0.9 MMOL/L (-2.5-2.5); ABG Oxygen Saturation 96.3 % (95-100); ABG PCO2 46.3 MM HG (35-48); ABG PO2 92.6 MM HG (80-95); ABG TCO2 26.4 MMOL/L (23-27); Allen Test Positive; Pt O2 Delivery Device Ventilator
[2019-08-24 04:38] LABS: Basophils % 0.3 % (0.0-0.8); Eosinophils % 0.1 % (0.00-10.9); Hematocrit 32.7 VOL% (35.7-47.0); Hemoglobin 10.5 GM/DL (12.0-16.0); Lymphocytes # 0.6 10*3/uL (1.4-4.0); Mean Corpuscular HGB Conc 32.1 GM/DL (32-36); Mean Corpuscular Volume 88.1 FL (87-102); NRBC # 0.11 10*3/uL; Neutrophils % 88.6 % (38.7-73.9); Platelet Count 80 T/CUMM (130-400); Red Blood Count 3.71 MC/CUMM (3.8-5.5); Red Cell Distribution Width 21.9 % (9.3-17.3); White Blood Count 9.9 T/CUMM (4-12)
[2019-08-24 04:57] LABS: Burr Cells Slight; Hypochromasia 1+; Lymphocytes 6 % (20-55); Microcytosis Slight; Nucleated Red Blood Cells 3 (0-5); Ovalocytes Slight; Platelet Estimate Decreased; Segmented Neutrophils 91 % (50-85); Total Cells Counted 100
[2019-08-24 05:03] LABS: Calcium 7.3 MG/DL (8.5-10.1); Osmolality,Calculated 271.8 MOS/KG (273-304)
[2019-08-24] MEDS: AZITHROMYCIN 250 MG TABLET PO SCH (08:30)
[2019-08-24] MEDS: ENOXAPARIN 30 MG/0.3 ML SYRINGE SUBCUT SCH (08:30)
[2019-08-24] MEDS: CALCIUM ACETATE 667 MG CAPSULE PO SCH ×3 (08:30→17:53)
[2019-08-24] MEDS: PANTOPRAZOLE 40 MG VIAL IV SCH (08:30)
[2019-08-24] MEDS: MULTIVITAMIN LIQUID (CENTRUM) 60 ML BOTTLE PO SCH (08:30)
[2019-08-24] MEDS: methylPREDNISolone SOD SUC 40 MG/1 ML VIAL IV SCH (08:30)
[2019-08-24] MEDS: MEROPENEM 500 MG in SODIUM CHLORIDE 0.9% 100 ML IV SCH (09:07)
[2019-08-24] MEDS: NOREPINEPHRINE 16 MG in SODIUM CHLORIDE 0.9% 234 ML IV PRN (10:21)
[2019-08-24] MEDS ORDERED: VANCOMYCIN INJ 500 MG in SODIUM CHLORIDE 0.9% 100 ML IV ONE (17:00)
[2019-08-24] MEDS: FOLIC ACID 1 MG TABLET PO SCH (20:26)
[2019-08-24] MEDS: ASPIRIN CHEW 81 MG TABLET PO SCH (20:26)
[2019-08-25] MEDS: ALBUTEROL INHALER 8 GM INH SCH ×4 (01:27→18:19)
[2019-08-25 05:04] LABS: Basophils % 0.3 % (0.0-0.8); Eosinophils % 0.2 % (0.00-10.9); Hematocrit 30.2 VOL% (35.7-47.0); Hemoglobin 10.2 GM/DL (12.0-16.0); Immature Granulocytes % 5.5 %; Immature Granulocytes Absolute 0.69 #; Lymphocytes % 7.7 % (21.3-54.2); Mean Corpuscular HGB Conc 33.8 GM/DL (32-36); Mean Corpuscular Volume 84.6 FL (87-102); NRBC # 0.12 10*3/uL; Neutrophils % 84.3 % (38.7-73.9); Platelet Count 103 T/CUMM (130-400); Red Blood Count 3.57 MC/CUMM (3.8-5.5); Red Cell Distribution Width 22.5 % (9.3-17.3); White Blood Count 12.5 T/CUMM (4-12)
[2019-08-25 05:07] LABS: ABG Base Excess 1.9 MMOL/L (-2.5-2.5); ABG HCO3 25.9 MMOL/L (20-26); ABG PCO2 54.3 MM HG (35-48); ABG PH 7.332 (7.35-7.45); ABG PO2 62.5 MM HG (80-95); ABG TCO2 26.2 MMOL/L (23-27); Allen Test Positive; Pt O2 Delivery Device Ventilator
[2019-08-25 05:18] LABS: Calcium 7.7 MG/DL (8.5-10.1); Osmolality,Calculated 274.5 MOS/KG (273-304)
[2019-08-25 06:42] LABS: Anisocytosis 1+; Band Neutrophils 6 % (0-10); Lymphocytes 9 % (20-55); Macrocytosis 1+; Nucleated Red Blood Cells 2 (0-5); Platelet Estimate Decreased; Segmented Neutrophils 82 % (50-85); Total Cells Counted 100
[2019-08-25 06:43] LABS: Acanthocytes Few
[2019-08-25] MEDS: CALCIUM ACETATE 667 MG CAPSULE PO SCH ×3 (09:21→17:33)
[2019-08-25] MEDS: ENOXAPARIN 30 MG/0.3 ML SYRINGE SUBCUT SCH (09:21)
[2019-08-25] MEDS: MULTIVITAMIN LIQUID (CENTRUM) 60 ML BOTTLE PO SCH (09:22)
[2019-08-25] MEDS: MEROPENEM 500 MG in SODIUM CHLORIDE 0.9% 100 ML IV SCH (09:22)
[2019-08-25] MEDS: methylPREDNISolone SOD SUC 40 MG/1 ML VIAL IV SCH (09:23)
[2019-08-25] MEDS: PANTOPRAZOLE 40 MG VIAL IV SCH (09:25)
[2019-08-25] MEDS: ASPIRIN CHEW 81 MG TABLET PO SCH (20:41)
[2019-08-25] MEDS: FOLIC ACID 1 MG TABLET PO SCH (20:41)
[2019-08-26] MEDS: ALBUTEROL INHALER 8 GM INH SCH ×3 (01:05→13:38)
[2019-08-26 03:29] LABS: ABG HCO3 23.3 MMOL/L (20-26); ABG Oxygen Saturation 86.3 % (95-100); ABG PCO2 61.2 MM HG (35-48); ABG PH 7.258 (7.35-7.45); ABG PO2 61.3 MM HG (80-95); ABG TCO2 25.1 MMOL/L (23-27)
[2019-08-26 05:45] LABS: Basophils # 0.1 10*3/uL (0.0-0.2); Basophils % 0.3 % (0.0-0.8); Eosinophils % 0.1 % (0.00-10.9); Hematocrit 32.7 VOL% (35.7-47.0); Immature Granulocytes % 4.1 %; Immature Granulocytes Absolute 0.65 #; Lymphocytes # 1.1 10*3/uL (1.4-4.0); Lymphocytes % 6.7 % (21.3-54.2); Mean Corpuscular HGB Conc 33.6 GM/DL (32-36); Mean Corpuscular Volume 84.9 FL (87-102); Monocytes % 3.2 % (1.7-12.7); NRBC # 0.06 10*3/uL; Neutrophils % 85.6 % (38.7-73.9); Platelet Count 138 T/CUMM (130-400); Red Blood Count 3.85 MC/CUMM (3.8-5.5); Red Cell Distribution Width 23.4 % (9.3-17.3); White Blood Count 15.8 T/CUMM (4-12)
[2019-08-26 06:04] LABS: Band Neutrophils 4 % (0-10); Lymphocytes 9 % (20-55); Nucleated Red Blood Cells 1 (0-5); Segmented Neutrophils 84 % (50-85); Total Cells Counted 100
[2019-08-26 06:05] LABS: Anisocytosis 1+; Hypochromasia 1+; Microcytosis 1+; Ovalocytes Slight
[2019-08-26 06:06] LABS: Acanthocytes Few
[2019-08-26 06:25] LABS: Calcium 8.2 MG/DL (8.5-10.1); Osmolality,Calculated 273.9 MOS/KG (273-304)
[2019-08-26] MEDS: ENOXAPARIN 30 MG/0.3 ML SYRINGE SUBCUT SCH (08:09)
[2019-08-26] MEDS: methylPREDNISolone SOD SUC 40 MG/1 ML VIAL IV SCH (08:09)
[2019-08-26] MEDS: PANTOPRAZOLE 40 MG VIAL IV SCH (08:09)
[2019-08-26] MEDS: CALCIUM ACETATE 667 MG CAPSULE PO SCH ×3 (08:10→18:22)
[2019-08-26] MEDS: MULTIVITAMIN LIQUID (CENTRUM) 60 ML BOTTLE PO SCH (08:11)
[2019-08-26] MEDS: MEROPENEM 500 MG in SODIUM CHLORIDE 0.9% 100 ML IV SCH (08:30)
[2019-08-26] MEDS: predniSONE 10 MG TABLET PO SCH (09:13)
[2019-08-26] MEDS ORDERED: VANCOMYCIN INJ 500 MG in SODIUM CHLORIDE 0.9% 100 ML IV ONE (17:00)
[2019-08-26] MEDS: NOREPINEPHRINE 16 MG in SODIUM CHLORIDE 0.9% 234 ML IV PRN (18:23)
[2019-08-26] MEDS: FOLIC ACID 1 MG TABLET PO SCH (19:50)
[2019-08-26] MEDS: ASPIRIN CHEW 81 MG TABLET PO SCH (19:50)
[2019-08-27 03:15] LABS: Allen Test Positive; Pt O2 Delivery Device Ventilator
[2019-08-27 03:17] LABS: ABG HCO3 24.2 MMOL/L (20-26); ABG Oxygen Saturation 85.3 % (95-100); ABG PO2 62.5 MM HG (80-95); ABG TCO2 28.3 MMOL/L (23-27)
[2019-08-27 03:19] LABS: ABG PH 7.199 (7.35-7.45)
[2019-08-27 03:20] LABS: ABG PCO2 78.7 MM HG (35-48)
[2019-08-27 05:14] LABS: Basophils # 0.1 10*3/uL (0.0-0.2); Basophils % 0.4 % (0.0-0.8); Eosinophils % 0.2 % (0.00-10.9); Hematocrit 34.6 VOL% (35.7-47.0); Hemoglobin 11.5 GM/DL (12.0-16.0); Immature Granulocytes % 4.7 %; Immature Granulocytes Absolute 0.66 #; Lymphocytes # 0.9 10*3/uL (1.4-4.0); Lymphocytes % 6.6 % (21.3-54.2); Mean Corpuscular HGB Conc 33.2 GM/DL (32-36); Mean Corpuscular Volume 86.3 FL (87-102); Monocytes % 3.9 % (1.7-12.7); NRBC # 0.08 10*3/uL; Neutrophils % 84.2 % (38.7-73.9); Platelet Count 159 T/CUMM (130-400); Red Blood Count 4.01 MC/CUMM (3.8-5.5)
[2019-08-27 05:16] LABS: Calcium 8.9 MG/DL (8.5-10.1); Osmolality,Calculated 275.8 MOS/KG (273-304)
[2019-08-27 08:13] LABS: Band Neutrophils 3 % (0-10); Eosinophils 1 % (0-10); Total Cells Counted 100
[2019-08-27 08:14] LABS: Acanthocytes 1+; Anisocytosis 2+; Hypochromasia 2+; Lymphocytes 7 % (20-55); Macrocytosis 2+; Microcytosis Slight; Ovalocytes 1+; Platelet Estimate Adequate; Polychromasia Few; Segmented Neutrophils 86 % (50-85); Target Cells 2+
[2019-08-27] MEDS: ENOXAPARIN 30 MG/0.3 ML SYRINGE SUBCUT SCH (09:03)
[2019-08-27] MEDS: PANTOPRAZOLE 40 MG VIAL IV SCH (09:03)
[2019-08-27] MEDS: methylPREDNISolone SOD SUC 40 MG/1 ML VIAL IV SCH ×3 (09:03→17:28)
[2019-08-27] MEDS: predniSONE 10 MG TABLET PO SCH (09:04)
[2019-08-27] MEDS: CALCIUM ACETATE 667 MG CAPSULE PO SCH ×3 (09:04→17:28)
[2019-08-27] MEDS: MULTIVITAMIN LIQUID (CENTRUM) 60 ML BOTTLE PO SCH (09:04)
[2019-08-27] MEDS: MEROPENEM 500 MG in SODIUM CHLORIDE 0.9% 100 ML IV SCH (09:05)
[2019-08-27] MEDS: NOREPINEPHRINE 16 MG in SODIUM CHLORIDE 0.9% 234 ML IV PRN (18:17)
[2019-08-27] MEDS: ASPIRIN CHEW 81 MG TABLET PO SCH (20:54)
[2019-08-27] MEDS: FOLIC ACID 1 MG TABLET PO SCH (20:55)
[2019-08-28] MEDS: methylPREDNISolone SOD SUC 40 MG/1 ML VIAL IV SCH ×2 (01:43→09:35)
[2019-08-28 03:03] LABS: ABG Base Excess -7.8 MMOL/L (-2.5-2.5); ABG HCO3 17.3 MMOL/L (20-26); ABG Oxygen Saturation 50.5 % (95-100); ABG TCO2 25.9 MMOL/L (23-27); Allen Test Positive; Pt O2 Delivery Device Ventilator
[2019-08-28 03:12] LABS: ABG PO2 39.2 MM HG (80-95)
[2019-08-28 04:19] LABS: Basophils # 0.1 10*3/uL (0.0-0.2); Basophils % 0.6 % (0.0-0.8); Hematocrit 35.2 VOL% (35.7-47.0); Hemoglobin 11.5 GM/DL (12.0-16.0); Immature Granulocytes % 4.6 %; Immature Granulocytes Absolute 0.64 #; Lymphocytes # 0.5 10*3/uL (1.4-4.0); Lymphocytes % 3.8 % (21.3-54.2); Mean Corpuscular HGB Conc 32.7 GM/DL (32-36); Mean Corpuscular Volume 86.1 FL (87-102); Monocytes % 5.4 % (1.7-12.7); Neutrophils % 85.6 % (38.7-73.9); Platelet Count 181 T/CUMM (130-400); Red Blood Count 4.09 MC/CUMM (3.8-5.5); Red Cell Distribution Width 25.2 % (9.3-17.3); White Blood Count 13.9 T/CUMM (4-12)
[2019-08-28 05:21] LABS: Band Neutrophils 5 % (0-10); Lymphocytes 8 % (20-55); Metamyelocytes 1 %; Nucleated Red Blood Cells 2 (0-5); Segmented Neutrophils 83 % (50-85); Total Cells Counted 100
[2019-08-28 05:23] LABS: Hypochromasia 2+; Macrocytosis 1+; Microcytosis 1+
[2019-08-28 05:24] LABS: Acanthocytes Few; Atypical Lymphocytes Few; Ovalocytes 2+
[2019-08-28 05:25] LABS: Platelet Estimate Normal
[2019-08-28] MEDS: NOREPINEPHRINE 16 MG in SODIUM CHLORIDE 0.9% 234 ML IV PRN (06:00)
[2019-08-28 06:18] VITALS: BP 126/72
[2019-08-28 06:52] LABS: Calcium 9.5 MG/DL (8.5-10.1); Osmolality,Calculated 283.8 MOS/KG (273-304)
[2019-08-28] MEDS ORDERED: SODIUM BICARBONATE 50 MEQ/50 ML VIAL IV ONE (07:55)
[2019-08-28] MEDS ORDERED: DEXTROSE 10% 250 ML BAG IV ONE (07:56)
[2019-08-28] MEDS ORDERED: INSULIN REGULAR 100 UNIT/ML IV ONE (07:56)
[2019-08-28] MEDS ORDERED: CALCIUM GLUCONATE 2,000 MG in SODIUM CHLORIDE 0.9% 100 ML IV ONE (08:30)
[2019-08-28] MEDS: MEROPENEM 500 MG in SODIUM CHLORIDE 0.9% 100 ML IV SCH (09:33)
[2019-08-28] MEDS: CALCIUM ACETATE 667 MG CAPSULE PO SCH ×2 (09:33→11:45)
[2019-08-28] MEDS: predniSONE 10 MG TABLET PO SCH (09:36)
[2019-08-28] MEDS: ENOXAPARIN 30 MG/0.3 ML SYRINGE SUBCUT SCH (09:38)
[2019-08-28] MEDS: MULTIVITAMIN LIQUID (CENTRUM) 60 ML BOTTLE PO SCH (09:38)
[2019-08-28] MEDS: PANTOPRAZOLE 40 MG VIAL IV SCH (09:38)
[2019-08-28] MEDS ORDERED: ALBUMIN 25% 50 GM in PREMIX 1 EACH IV ONE (10:01)
[2019-08-28] MEDS ORDERED: DOPamine 0 MG/0 ML PREMIX IV ONE (10:48)
== END 2019-08-28 10:52 | disposition expired | DRG 870 ==
LOC: EDUNIT# → EDBD → N.ED 19:09 → SUATTDRO 08-19 05:17 → N.EDINP 08-19 05:17 → N.2E 08-19 06:35 → N.ICU 08-19 18:55 → N.CC 08-25 20:07
PROVIDERS: ADMIT Internal Medicine; ATTEND Internal Medicine